=== PATIENT | female | born 1945 | race Caucasian/White ===

== ENCOUNTER 2017-02-25 11:01 | Inpatient (IN) | payer MEDICARE ==
[2017-02-25] VITALS (8 sets, daily range): BP systolic 113–159; BP diastolic 57–73; PULSE 51–80; RESP 15–20; TEMP 97.8–98.3; O2SAT 95–98
[~2017-02-25] VITALS: Ht 152.4 cm; Wt 52.0 kg
[2017-02-25] MEDS ORDERED: GADODIAMIDE PF 287 MG/ML 20 ML VIAL (for RAD MRI) IVCONTRAST ONE (11:02)
--- NOTE | 2017-02-25 11:40 | PD ---
HPI Chief Complaint: Neuro Symptoms/ Deficits Time Seen by Provider: 11:33 Travel History International Travel<30 days: No Contact w/Intl Traveler<30days: No Traveled to known affect area: No History of Present Illness HPI 71-year-old female presents to emergency department with complaints of sudden onset headache last evening around 10 PM. Patient reports visual changes at that time. She states that this time she is improving and her pain is now improving and describes it as a 6 out of 10. Patient states her visual changes or improving as well. 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 Patient denies any specific neurological deficit other than the visual changes that are already noted. Daughter is here and states she seems somewhat confused. Patient denies any other medical history such as diabetes or hypertension. She currently takes Plavix as a anticoagulant. Patient is allergic to citrus and derivatives, statins, morphine , and oxycodone. PFSH Past Medical History Hx Anticoagulant Therapy: Yes (plavix) Asthma: Yes Cardiac Catheterization: Yes Cerebrovascular Accident: Yes Hypertension: Yes Myocardial Infarction: Yes Influenza Vaccination: No ?: Not Tubal Ligation: Yes Past Surgical History Cholecystectomy: Yes Coronary Artery Bypass Graft: Yes Coronary Stent: Yes Social History Alcohol Use: No Tobacco Use: Yes Substance Use: No Allergies-Medications (Allergen,Severity, Reaction): Coded Allergies: [place] And Derivatives (Verified Allergy, Intermediate, Rash, 02/25/17) Yuxtabi-Xkt-Jww Reductase Inhibitor (Verified Allergy, Intermediate, Rash , 02/25/17) morphine (Verified Allergy, Intermediate, Itching, 02/25/17) itching and vomiting oxycodone (Verified Allergy, Intermediate, Tachycardia, 02/25/17) Reported Meds & Prescriptions Reported Meds & Active Scripts Active Active Prescriptions or Reported Medications Unobtainable Review of Systems Except as stated in HPI: all other systems reviewed are Neg General / Constitutional: No: Fever Eyes: Positive: Blind Spots, Visual changes (history of present illness), No: Diploplia, Blurred Vision, Photophobia, Drainage, Redness, Foreign Body Sensation, Pain, Tearing, Blindness HENT: No: Headaches Cardiovascular: No: Chest Pain or Discomfort Respiratory: No: Shortness of Breath Gastrointestinal: No: Abdominal Pain Genitourinary: No: Dysuria Musculoskeletal: No: Pain Skin: No Rash Neurologic: No: Weakness Psychiatric: No: Depression Endocrine: No: Polydipsia Hematologic/Lymphatic: No: Easy Bruising Physical Exam Narrative GENERAL: Patient is alert and oriented although somewhat slow to respond to questions. SKIN: Warm and dry. Normal color. Normal turgor. HEAD: Atraumatic. Normocephalic. Nontender with palpation. EYES: Pupils equal and round. No scleral icterus. No injection or drainage. Patient appears to have some visual deficits which are hard to define with confrontation. Follow scopic exam is unremarkable. There is no lid lag noted. ENT: No nasal bleeding or discharge. Mucous membranes pink and moist. Pharynx is clear. Airway is patent. There is no facial droop. Tongue is midline. Uvula is midline. Patient is swallowing normally. NECK: Trachea midline. Supple and nontender. No bruits appreciated. CARDIOVASCULAR: Bradycardic rate and Normal rhythm. RESPIRATORY: No accessory muscle use. Clear to auscultation. Breath sounds equal bilaterally. GASTROINTESTINAL: Abdomen soft, non-tender, nondistended. Hepatic and splenic margins not palpable. MUSCULOSKELETAL: Extremities without clubbing, cyanosis, or edema. No obvious deformities. NEUROLOGICAL: Awake and alert. No obvious cranial nerve deficits. Motor grossly within normal limits. Five out of 5 muscle strength in the arms and legs. Normal speech. Patient is able to track her nose to finger bilaterally. Chicken Boner strength is equal bilaterally. She is moving both lower extremities equally. PSYCHIATRIC: Appropriate mood and affect; insight and judgment normal. Data Data Last Documented VS Vital Signs Date Time Temp Pulse Resp B/P (MAP) Pulse Ox O2 Delivery O2 Flow Rate FiO2 02/25/17 12:40 96 Room Air 02/25/17 12:40 69 15 113/57 (75) 02/25/17 11:03 98.3 Orders Orders Electrocardiogram (02/25/17 ) Prothrombin Time / Inr (Pt) (02/25/17 11:40) Act Partial Throm Time (Ptt) (02/25/17 11:40) Complete Blood Count With Diff (02/25/17 11:40) Fibrinogen (02/25/17 11:40) Creatine Kinase (Cpk) (02/25/17 11:40) Troponin I (02/25/17 11:40) Ua Includes Microscopic (02/25/17 11:40) Drug Screen, Random Urine (02/25/17 11:40) Type And Screen (02/25/17 11:40) Ct Brain W/O Iv Contrast(Rout) (02/25/17 ) Chest, Single Ap (02/25/17 ) Beta Hcg (Quant/Titer) (02/25/17 11:40) Blood Glucose (02/25/17 11:40) Ecg Monitoring (02/25/17 11:40) Iv Access Insert/Monitor (02/25/17 11:40) NPO (02/25/17 11:40) Oximetry (02/25/17 11:40) Oxygen Administration (02/25/17 11:40) Alcohol (Ethanol) (02/25/17 11:40) Ammonia (02/25/17 11:40) Mri Brain W&W/O Contrast (02/25/17 ) Mra Carotids W Contrast (02/25/17 ) Consult Neurology (02/25/17 ) CKMB (02/25/17 11:45) CKMB% (02/25/17 11:45) Comprehensive Metabolic Panel (02/25/17 13:36) Mra Brain W/O Contrast (Cow) (02/25/17 ) Dipyridamole-Aspirin 200-25 Mg (Aggrenox (02/25/17 21:00) Gadodiamide Pf Inj (Omniscan Pf Inj) (02/25/17 11:02) Admit Order (Ed Use Only) (02/25/17 17:14) Labs Laboratory Tests Test 02/25/17 11:45 02/25/17 12:30 White Blood Count 9.4 TH/MM3 Red Blood Count 4.73 MIL/MM3 Hemoglobin 15.9 GM/DL Hematocrit 46.0 % Mean Corpuscular Volume 97.2 FL Mean Corpuscular Hemoglobin 33.6 PG Mean Corpuscular Hemoglobin Concent 34.6 % Red Cell Distribution Width 14.3 % Platelet Count 281 TH/MM3 Mean Platelet Volume 7.7 FL Neutrophils (%) (Auto) 79.1 % Lymphocytes (%) (Auto) 15.0 % Monocytes (%) (Auto) 5.1 % Eosinophils (%) (Auto) 0.3 % Basophils (%) (Auto) 0.5 % Neutrophils # (Auto) 7.4 TH/MM3 Lymphocytes # (Auto) 1.4 TH/MM3 Monocytes # (Auto) 0.5 TH/MM3 Eosinophils # (Auto) 0.0 TH/MM3 Basophils # (Auto) 0.0 TH/MM3 CBC Comment DIFF FINAL Differential Comment Prothrombin Time 10.7 SEC Prothromb Time International Ratio 1.0 RATIO Activated Partial Thromboplast Time 25.1 SEC Fibrinogen 392 mg/dL Blood Urea Nitrogen 10 MG/DL Creatinine 0.93 MG/DL Random Glucose 124 MG/DL Total Protein 7.4 GM/DL Albumin 3.5 GM/DL Calcium Level 9.1 MG/DL Alkaline Phosphatase 68 U/L Aspartate Amino Transf (AST/SGOT) 63 U/L Alanine Aminotransferase (ALT/SGPT) 33 U/L Total Bilirubin 0.7 MG/DL Sodium Level 139 MEQ/L Potassium Level 3.4 MEQ/L Chloride Level 108 MEQ/L Carbon Dioxide Level 23.1 MEQ/L Anion Gap 8 MEQ/L Estimat Glomerular Filtration Rate 60 ML/MIN Total Creatine Kinase 250 U/L Creatine Kinase MB 3.9 NG/ML Creatine Kinase MB % 1.6 % Troponin I LESS THAN 0.02 NG/ML Human Chorionic Gonadotropin, Quant 2 MIU/ML Ethyl Alcohol Level LESS THAN 3 MG/DL Ammonia 27 MCMOL/L [facility] Medical Decision Making Medical Screen Exam Complete: Yes Emergency Medical Condition: Yes Medical Record Reviewed: Yes Differential Diagnosis Headache. Possible intracranial bleed. Hemorrhagic stroke. Altered mental status. Narrative Course Labs ordered including CBC, CMP, alcohol level, Ammonia level, fibrinogen, urine drug screen, coagulation studies, troponin. CT of the head and chest x-ray are ordered as well. CT findings show: The examination demonstrates a soluble area of decreased attenuation involving the medial aspect of the right occipital cortex. There is slight mass effect associated with this. This appears to extend all the way to the surface of the parenchyma and is most consistent with subacute cortical infarct. MRI imaging to exclude an underlying mass would be of benefit. This is felt significantly less likely. Of note, there is an old, encephalomalacic infarct involving the occipital cortex on the left. No acute intracranial hemorrhage is identified. No extra-axial fluid collections are seen. The appearance of the posterior fossa is unremarkable. The osseous structures of the skull are intact. CONCLUSION: 1. Subacute cortical infarct involving the occipital cortex on the right. Findings discussed with Dr. Vazquez, neurologist is paged to discuss the patient Call returned by Dr. Mattson, and the patient was discussed. MRI of the brain and MRA of the carotids were ordered with and without contrast. Dr. Costa said she would speak down to see the patient. MRI and MRA showed no mass. MRA shows the carotids bilaterally to be patent. Hospitalist was called and discussed, and the patient was admitted. Consult to Dr. Mattson was ordered. Diagnosis Primary Impression: Subacute intracranial hemorrhage Admitting Information Admitting Physician Requests: Admit Scripts Unable to Obtain Active Prescriptions or Reported Meds Condition: Stable Gerald Mac Feb 25, 2017 11:40
--- NOTE | 2017-02-25 12:03 | PD ---
Physical Exam Date Seen by Provider: Feb 25, 2017 Narrative Patient presents with some visual disturbance. Data Data Last Documented VS Vital Signs Date Time Temp Pulse Resp B/P (MAP) Pulse Ox O2 Delivery O2 Flow Rate FiO2 02/25/17 11:03 98.3 80 18 136/73 (94) 98 Room Air Orders Orders Electrocardiogram (02/25/17 ) Prothrombin Time / Inr (Pt) (02/25/17 11:40) Act Partial Throm Time (Ptt) (02/25/17 11:40) Complete Blood Count With Diff (02/25/17 11:40) Fibrinogen (02/25/17 11:40) Creatine Kinase (Cpk) (02/25/17 11:40) Troponin I (02/25/17 11:40) Ua Includes Microscopic (02/25/17 11:40) Drug Screen, Random Urine (02/25/17 11:40) Type And Screen (02/25/17 11:40) Ct Brain W/O Iv Contrast(Rout) (02/25/17 ) Chest, Single Ap (02/25/17 ) Beta Hcg (Quant/Titer) (02/25/17 11:40) Blood Glucose (02/25/17 11:40) Ecg Monitoring (02/25/17 11:40) Iv Access Insert/Monitor (02/25/17 11:40) NPO (02/25/17 11:40) Oximetry (02/25/17 11:40) Oxygen Administration (02/25/17 11:40) Alcohol (Ethanol) (02/25/17 11:40) Ammonia (02/25/17 11:40) MDM Supervised Visit with DRU: Yes Narrative Course I, Dr. Vazquez, have reviewed the advance practice practitioner's documentation and am in agreement, met with the patient face to face, made the diagnosis, and the medical decision making was done by me. *My assessment and Findings: Cranial nerves are intact. Her powder compounder strengths are full and equal. She is able lift both legs up off the bed and hold them equally. [id number] exam is intact. Please see Babatunde Mac's note for final diagnosis and disposition. Scripts Unable to Obtain Active Prescriptions or Reported Meds Avelina Vazquez MD Feb 25, 2017 12:03
--- NOTE | 2017-02-25 12:26 | RADRPT ---
EXAM DATE/TIME: 02/25/2017 11:59 [facility] COMPARISON: No previous studies available for comparison. INDICATIONS : Episode of visual disturbances. Severe headache. RADIATION DOSE: 56.35 CTDIvol (mGy) MEDICAL HISTORY : Cardiovascular disease. Hypertension. Stroke. SURGICAL HISTORY : Cholecystectomy. ENCOUNTER: Initial ACUITY: 2 days PAIN SCALE: 4/10 LOCATION: Bilateral cranial TECHNIQUE: Multiple contiguous axial images were obtained of the head. Using automated exposure control and adj ustment of the mA and/or kV according to patient size, radiation dose was kept as low as reasonably a chievable to obtain optimal diagnostic quality images. DICOM format image data is available electro nically for review and comparison. FINDINGS: The examination demonstrates a soluble area of decreased attenuation involving the medial aspect of t he right occipital cortex. There is slight mass effect associated with this. This appears to extend a ll the way to the surface of the parenchyma and is most consistent with subacute cortical infarct. MR I imaging to exclude an underlying mass would be of benefit. This is felt significantly less likely. Of note, there is an old, encephalomalacic infarct involving the occipital cortex on the left. No acu te intracranial hemorrhage is identified. No extra-axial fluid collections are seen. The appearance of the posterior fossa is unremarkable. The osseous structures of the skull are intact. CONCLUSION: 1. Subacute cortical infarct involving the occipital cortex on the right. 2. Old, encephalomalacic infarct involving a simple cortex on the left. 3. Please see above discussion. Tyrel Huizar MD on February 25, 2017 at 12:23 Board Certified Radiologist. This report was verified electronically.
[2017-02-25 12:41] LABS: AUTOMATED NEUTROPHIL # 7.4 TH/MM3 (1.8-7.7); BASOPHIL % 0.5 % (0.0-2.0); EOSINOPHIL % 0.3 % (0.0-4.0); HEMO FLAGS DIFF FINAL; LYMPHOCYTE # 1.4 TH/MM3 (1.0-4.8); MEAN CELL VOLUME 97.2 FL (80.0-100.0); MEAN CORPUSCULAR HEMOGLOBIN 33.6 PG (27.0-34.0); MEAN CORPUSCULAR HGB CONC 34.6 % (32.0-36.0); MONO % 5.1 % (0.0-8.0); NEUT % 79.1 % (16.0-70.0); PLATELET COUNT 281 TH/MM3 (150-450); RED BLOOD COUNT 4.73 MIL/MM3 (4.00-5.30); RED CELL DISTRIBUTION WIDTH 14.3 % (11.6-17.2); WHITE BLOOD COUNT 9.4 TH/MM3 (4.0-11.0)
[2017-02-25 12:54] LABS: APTT (PATIENT) 25.1 SEC (24.3-30.1); PROTHROMBIN TIME - PATIENT 10.7 SEC (9.8-11.6)
[2017-02-25 13:10] LABS: BETA HCG QUANT 2 MIU/ML (0-5); CREATINE KINASE 250 U/L (26-192)
[2017-02-25 13:19] LABS: ALCOHOL LESS THAN 3 MG/DL (0-5)
[2017-02-25 13:31] LABS: CKMB 3.9 NG/ML (0.5-3.6)
--- NOTE | 2017-02-25 13:47 | RADRPT ---
EXAM DATE/TIME: 02/25/2017 12:36 [facility] COMPARISON: No previous studies available for comparison. INDICATIONS : Short of breath, stroke like symptoms. MEDICAL HISTORY : Myocardial infarction. SURGICAL HISTORY : CABG. ENCOUNTER: Initial ACUITY: 1 day PAIN SCORE: 0/10 LOCATION: Bilateral chest FINDINGS: The patient is post median sternotomy the sternal wires intact. The heart is within normal size limit s. The mediastinal contours are within normal limits. The lungs are clear. The visualized bony structures are grossly intact. CONCLUSION: 1. Post surgical changes. No acute abnormality. Tyrel Huizar MD on February 25, 2017 at 13:46 Board Certified Radiologist. This report was verified electronically.
[2017-02-25 14:03] LABS: ALKALINE PHOSPHATASE 68 U/L (45-117); TOTAL BILIRUBIN ADULT 0.7 MG/DL (0.2-1.0)
[2017-02-25 14:08] LABS: ALT (GPT) 33 U/L (10-53); ANION GAP 8 MEQ/L (5-15); AST (GOT) 63 U/L (15-37); BICARBONATE 23.1 MEQ/L (21.0-32.0); BLOOD UREA NITROGEN 10 MG/DL (7-18); CHLORIDE 108 MEQ/L (98-107); GLOMERULAR FILTRATION RATE 60 ML/MIN (>89); POTASSIUM 3.4 MEQ/L (3.5-5.1); SODIUM (NA) 139 MEQ/L (136-145)
--- NOTE | 2017-02-25 14:27 | EKG ---
Date Performed: 02/25/2017 Time Performed: 11:58:01 PTAGE: 71 years EKG: SINUS BRADYCARDIA ARM LEADS REVERSED BORDERLINE ECG NO PREVIOUS TRACING DOCTOR: Chintan Darby Interpretating Date/Time 02/25/2017 14:25:06
--- NOTE | 2017-02-25 15:22 | MB ---
cc: DAVIDA DAVILA M.D. DATE OF CONSULTATION: 12/25/2016 1946 REASON FOR CONSULTATION Abnormal CT, possible stroke. HISTORY OF PRESENT ILLNESS The patient is a 71-year-old woman who came into the ED with new onset headache about 10 o'clock last night with some change in vision, still having problems with visual field on the left, had a CT of the head done and showed a subacute infarct in the right occipital lobe. She states she has had four strokes in the past. She has a history of bilateral carotid endarterectomies, bypass surgeries. Apparently one of her strokes may have been hemorrhagic per chart note. She states she takes Plavix daily. PAST MEDICAL HISTORY She has a past medical history as stated. ALLERGIES CITRUS AND DIRIVATIVES, STATINS, MORPHINE, OXYCODONE. PAST SURGICAL HISTORY 1. Cholecystectomy. 2. Heart bypass. 3. Coronary artery bypass graft. 4. Coronary stents. 5. Bilateral carotid endarterectomy. SOCIAL HISTORY Still smokes, does not drink or use drugs. MEDICATION Home medicines: Please refer to MR, but she does take Plavix 75 mg daily. PHYSICAL EXAMINATION VITAL SIGNS: Temperature is 98.3, pulse 66, respiratory rate 16, blood pressure 113/57, sating 96% on room air. NECK: Supple. No appreciable bruits. HEART: Regular. NEURO: She is awake and alert. Speech is normal. Pupils are reactive. She has a left visual field loss. Face is symmetrical. Tongue midline. Motor ruano no lateralizing deficits. DTRs a 1+. Toes withdraws. Gait is withheld. IMAGING STUDIES Chest x-ray shows postsurgical changes, nothing acute. Head CT shows subacute cortical infarct in the occipital cortex on the right and old encephalomalacia infarct on the left. LABORATORY DATA Labs are reviewed. IMPRESSION/PLAN Subacute infarct right occipital lobe in a patient with history of carotid disease, coronary artery disease, chronic smoker. Recommend obtaining an MRI of the brain, MRA [id number], carotid ultrasound, 2-D Echo, a lipid panel. SCDs and Lovenox for DVT prophylaxis and seeing that she has failed Plavix therapy I would change her over to Aggrenox one capsule twice daily. Have PT, OT, speech therapy assess her as well, rehab evaluation. Further recommendations to be made accordingly. MD AMIRAH Guevara /2:21 PM /3:01 PM
--- NOTE | 2017-02-25 16:00 | RADRPT ---
EXAM DATE/TIME: 02/25/2017 15:14 [facility] COMPARISON: No previous studies available for comparison. INDICATIONS : Episode of visual disturbances. Severe headache MEDICAL HISTORY : Hypertension. Stroke SURGICAL HISTORY : Cholecystectomy. CABG Tubal ligation. knee ENCOUNTER: Initial ACUITY: 1 day PAIN SCORE: 3/10 LOCATION: cranial Please note a normal MRA of the brain does not entirely exclude the possibility of a small aneurysm, nor the possibility of distal intracranial vessel disease. TECHNIQUE: 3D time of flight MRA was performed. Source images, multiplanar STS MIP, and 3D volume MIP reconstru ctions were reviewed. FINDINGS: There is excellent visualization of the major intracranial arteries out to the second-order branch ve ssels. There is no evidence for aneurysm, vessel truncation or stenosis, and no evidence for vascula r malformation. CONCLUSION: 1. Negative examination. Tyrel Huizar MD on February 25, 2017 at 15:56 Board Certified Radiologist. This report was verified electronically.
--- NOTE | 2017-02-25 16:04 | RADRPT ---
EXAM DATE/TIME: 02/25/2017 15:14 [facility] COMPARISON: No previous studies available for comparison. INDICATIONS : Episode of visual disturbances. Severe headache. CONTRAST: 20 cc Omniscan (gadodiamide) IV MEDICAL HISTORY : Hypertension. Stroke SURGICAL HISTORY : Cholecystectomy. CABG Tubal ligation. Knee ENCOUNTER: Initial ACUITY: 3 day PAIN SCORE: 0/10 LOCATION: cranial TECHNIQUE: Multiplanar, multisequence MRI of the brain was performed both prior to and following the administrat ion of paramagnetic contrast. FINDINGS: CEREBRUM: The diffusion restriction images demonstrate a larger of abnormal signal involving the medial aspect of the right occipital cortex. No discrete underlying mass is identified. Findings would be most cons istent with subacute cortical infarct. Of note, there is some laminar hemorrhage within this on the S WI images. Note is made of an old area of cortical infarct involving the left occipital cortex. The v entricles are normal in size and configuration. No extra-axial fluid collections are seen. WHITE MATTER: No significant signal abnormalities are seen in the white matter. POSTERIOR FOSSA: The cerebellum and brainstem are intact. The 4th ventricle is midline. The cerebellopontine angle is unremarkable. The cerebellar tonsils are normal in position. DIFFUSION IMAGING: There is a focal are of restricted diffusion involving the medial occipital cortex on the right as de scribed above. There is also a punctate area of abnormal signal seen in the posterior aspect of the b harry ganglia on the right. EXTRACRANIAL: The visualized portions of the orbits and paranasal sinuses are unremarkable. POST-CONTRAST: No abnormal areas of parenchymal or dural enhancement. No evidence of blood-brain barrier breakdown. CONCLUSION: 1. No mass lesion identified. 2. Subacute cortical infarct involving the occipital cortex on the right. There is some hemorrhage wi thin this on the SWI images. 3. Old area of infarct involving the occipital cortex on the left. 4. Punctate area of acute/subacute infarct involving the basal ganglia on the right as well. Tyrel Huizar MD on February 25, 2017 at 15:59 Board Certified Radiologist. This report was verified electronically.
--- NOTE | 2017-02-25 16:08 | RADRPT ---
EXAM DATE/TIME: 02/25/2017 15:14 [facility] COMPARISON: No previous studies available for comparison. INDICATIONS : Episode of visual disturbances. Severe headache CONTRAST: 20 cc Omniscan (gadodiamide) IV MEDICAL HISTORY : Hypertension. Stroke SURGICAL HISTORY : Cholecystectomy. CABG Tubal ligation. knee ENCOUNTER: Initial ACUITY: 1 day PAIN SCORE: 3/10 LOCATION: cranial Percent stenosis is calculated using the diameter of the stenotic region over the diameter of the nor mal distal internal carotid artery. TECHNIQUE: Bolus infused MRA of the extracranial circulation was performed using a neurovascular coil. Post pro cessing was performed including rotating subvolume maximum intensity projections of each carotid mayur ry, rotating full volume maximum intensity projections of both carotid arteries, sagittal and coronal sliding thin slab reformations of each carotid artery, and left oblique sliding thin slab reformatio n through the aortic arch to include the origin of the arch branch vessels. FINDINGS: AORTIC ARCH: There is bovine branching of the great vessels from the arch. The origins of the great vessels are wi nichelle patent. Note is made of an area of moderate stenosis in the right subclavian origin as it branch es from the innominate. RIGHT CAROTID: The common carotid is patent throughout its course. There is some irregularity of the distal common c arotid extending up to the bifurcation suggesting atherosclerotic plaquing. There is no hemodynamical ly significant stenosis identified. The more cephalad portion of the internal carotid is widely paten t. The external carotid is widely patent. LEFT CAROTID: The proximal common carotid is widely patent. There is atherosclerotic plaquing just prior to the bif urcation. This results in a mild degree of stenosis in the distal common carotid. This is estimated t o be less than 10% by NASCET criteria. The bulb is widely patent cord the more cephalad portion of in ternal carotid is widely patent. The external carotid is widely patent. VERTEBRALS: The left vertebral is larger in caliber than the right. Both are widely patent. The basilar is widely patent the No stenotic lesions are seen. CONCLUSION: 1. Left carotid: 2. Minimal stenosis of the distal left common carotid estimated to be on the order of 10%. No hemodyn amically significant lesion is identified. 3. 4. Right carotid: 5. No hemodynamically significant carotid stenosis identified. Tyrel Huizar MD on February 25, 2017 at 16:02 Board Certified Radiologist. This report was verified electronically.
[2017-02-25] MEDS ORDERED: ONDANSETRON HCL 4 MG/2 ML VIAL IV PUSH PRN (18:00)
[2017-02-25] MEDS: SODIUM CHLOR 0.9% 1000 ML INJ 1,000 ML IV SCH (18:00)
[2017-02-25] MEDS ORDERED: SODIUM CHLORIDE 0.9% FLUSH 10 ML FLUSH IV FLUSH PRN (18:00)
[2017-02-25] MEDS ORDERED: ACETAMINOPHEN 325 MG TAB PO PRN (18:00)
--- NOTE | 2017-02-25 18:12 | HHI.HP ---
[facility] Service Family Medicine Primary Care Physician Gerald Rocha D.O. Admission Diagnosis Subacute CVA Diagnoses: International Travel<30 Days: No Contact w/Intl Traveler<30days: No History of Present Illness Patient is a 71F with a history significant for multiple strokes, CAD, hypertension, hyperlipidemia, and depression who presents after onset of headache, vision changes, and confusion. She presents with her daughter who provides most of the history. The patient reports that her last normal was before 10:00 yesterday evening, saying that she had onset of the above symptoms at that time. She notes that the headache was located. Top of her head and " felt like a whirlwind". She diminished to sleep last night. When she got up she still had trouble with her vision and had persistent headache. Her daughter urged her to come to the ED to be evaluated. Patient denies any other symptoms, specifically denying chest pain, autonomic symptoms. No recent falls or seizure- like activity. The daughter reports that the patient had decreased appetite over the last day. She has a history of CVAs in the past, reportedly in 2005 in June 2016. Of note, she had bilateral carotid endarterectomies in the remote past. She had 2 CVAs in June and has been on Plavix since this time. Residual deficits from the CVAs include right-sided weakness and vision changes, but her vision changes are new. She has a neurologist in [place]. (Kathy Reina MD R2) Review of Systems Constitutional: DENIES: Fever, Weight loss, Chills Eyes: COMPLAINS OF: Blurred vision, Eye pain, Vision loss, DENIES: Diplopia Ears, nose, mouth, throat: DENIES: Hearing loss, Throat pain, Ear Pain, Running Nose, Sinus Pain Respiratory: DENIES: Cough, Hemoptysis, Sputum production, Shortness of breath Cardiovascular: DENIES: Chest pain, Syncope, Lower Extremity Edema Gastrointestinal: DENIES: Black stools, Bloody stools, Nausea, Vomiting Genitourinary: DENIES: Urinary frequency, Dysuria Musculoskeletal: COMPLAINS OF: Joint pain, Neck pain Integumentary: DENIES: Pruritus, Rash Hematologic/lymphatic: DENIES: Bruising, Lymphadenopathy Neurologic: COMPLAINS OF: Headache, Poor Balance, DENIES: Localized weakness, Paresthesias, Seizures, Speech Problems Psychiatric: COMPLAINS OF: Anxiety, Confusion, Depression, DENIES: Suicidal Ideation, Homicidal Ideation (Kathy Reina MD R2) Past Family Social History Past Medical History CVA 3 CABG Depression with anxiety Hypertension Hyperlipidemia Hypothyroidism PCP: Dr. Aj Vergara Past Surgical History CABG - 2005 (no operating engineer) Tumor knee Bilateral tubal ligation Cholecystectomy Carotid endarterectomy bilaterally Reported Medications Reported Meds & Active Scripts Active Reported Lamisil (Terbinafine) 250 Mg Tab 250 Mg PO DAILY Zetia (Ezetimibe) 10 Mg Tab 10 Mg PO DAILY Levothyroxine (Levothyroxine Sodium) 88 Mcg Tab 88 Mcg PO DAILY Isosorbide Mononitrate 20 Mg Tab 30 Mg PO BID Take 2 doses 7 hours apart. Hydrochlorothiazide 25 Mg Tab 25 Mg PO DAILY Potassium Chloride ER (Potassium Chloride) 10 Meq Cap 10 Meq PO BID Amlodipine (Amlodipine Besylate) 10 Mg Tab 10 Mg PO DAILY Clopidogrel (Clopidogrel Bisulfate) 75 Mg Tab 75 Mg PO DAILY Nitroglycerin SL (Nitroglycerin) Unknown Strength Subl Unknown Dose SL DIRECTED PRN ONE TABLET UNDER THE TONGUE NEEDED FOR CHEST PAIN, MAY REPEAT EVERY FIVE MINUTES FOR A TOTAL OF 3 DOSES OR CALL 911 IF NO RELIEF Metoprolol Tartrate 50 Mg Tab 50 Mg PO DAILY Paroxetine (Paroxetine HCl) 20 Mg Tab 20 Mg PO DAILY Xanax (Alprazolam) 0.5 Mg Tab 0.5 Mg PO TID PRN Topiramate 200 Mg Tab 100 Mg PO BID (Kathy Reina MD R2) Allergies: Coded Allergies: [place] And Derivatives (Verified Allergy, Intermediate, Rash, 02/25/17) Dzfptxh-[id number]-Qbv Reductase Inhibitor (Verified Allergy, Intermediate, Rash , 02/25/17) morphine (Verified Allergy, Intermediate, Itching, 02/25/17) itching and vomiting oxycodone (Verified Allergy, Intermediate, Tachycardia, 02/25/17) Family History Mother: A fib, lung cancer age 79 Brother: CVA, clot from heart, A fib Daughter: of breast age 46 Social History Cigarette: 1 PPD x 55 yr ETOH: remote Illicit: denies Lives with daughter and granddaughter No assistive devices Her daughter is [place] [phone] (Kathy Reina MD R2) Physical Exam Vital Signs Vital Signs Date Time Temp Pulse Resp B/P (MAP) Pulse Ox O2 Delivery O2 Flow Rate FiO2 02/25/17 12:40 96 Room Air 02/25/17 12:40 69 15 113/57 (75) 96 Room Air 02/25/17 12:40 66 16 113/57 (75) 96 Room Air 02/25/17 11:03 98.3 80 18 136/73 (94) 98 Room Air Physical Exam GENERAL: Patient is a well-nourished, well-developed elderly female lying in bed flat. She appears confused. SKIN: Warm and dry. No obvious rashes or ecchymoses. HEAD: Atraumatic. Normocephalic. EYES: Pupils equal and round. No scleral icterus. No injection or drainage. ENT: No nasal bleeding or discharge. Mucous membranes pink and moist. NECK: Trachea midline. No JVD. CARDIOVASCULAR: Regular rate and rhythm. There are no obvious murmurs on exam. RESPIRATORY: No accessory muscle use. Clear to auscultation. Breath sounds equal bilaterally. GASTROINTESTINAL: Abdomen soft, non-tender, nondistended. Hepatic and splenic margins not palpable. MUSCULOSKELETAL: Extremities without clubbing, cyanosis, or edema. No obvious deformities. NEUROLOGICAL: Awake and alert. Cranial nerves II through XII intact. Sensory examination is normal. She has grossly normal strength. Cerebellar exam unremarkable. She has left homonymous hemianopsia. Speech appears to be slowed. PSYCHIATRIC: Appropriate mood and affect; insight and judgment normal. Laboratory Laboratory Tests Test 02/25/17 11:45 02/25/17 12:30 White Blood Count 9.4 Red Blood Count 4.73 Hemoglobin 15.9 Hematocrit 46.0 Mean Corpuscular Volume 97.2 Mean Corpuscular Hemoglobin 33.6 Mean Corpuscular Hemoglobin Concent 34.6 Red Cell Distribution Width 14.3 Platelet Count 281 Mean Platelet Volume 7.7 Neutrophils (%) (Auto) 79.1 Lymphocytes (%) (Auto) 15.0 Monocytes (%) (Auto) 5.1 Eosinophils (%) (Auto) 0.3 Basophils (%) (Auto) 0.5 Neutrophils # (Auto) 7.4 Lymphocytes # (Auto) 1.4 Monocytes # (Auto) 0.5 Eosinophils # (Auto) 0.0 Basophils # (Auto) 0.0 CBC Comment DIFF FINAL Differential Comment Prothrombin Time 10.7 Prothromb Time International Ratio 1.0 Activated Partial Thromboplast Time 25.1 Fibrinogen 392 Blood Urea Nitrogen 10 Creatinine 0.93 Random Glucose 124 Total Protein 7.4 Albumin 3.5 Calcium Level 9.1 Alkaline Phosphatase 68 Aspartate Amino Transf (AST/SGOT) 63 Alanine Aminotransferase (ALT/SGPT) 33 Total Bilirubin 0.7 Sodium Level 139 Potassium Level 3.4 Chloride Level 108 Carbon Dioxide Level 23.1 Anion Gap 8 Estimat Glomerular Filtration Rate 60 Total Creatine Kinase 250 Creatine Kinase MB 3.9 Creatine Kinase MB % 1.6 Troponin I LESS THAN 0.02 Human Chorionic Gonadotropin, Quant 2 Ethyl Alcohol Level LESS THAN 3 Ammonia 27 (Kathy Reina MD R2) Result Diagram: 02/25/17 1145 02/25/17 1145 Imaging Last 72 hours Impressions Neck Magnetic Resonance Angiography 02/25/17 0000 Signed Impressions: Service Date/Time: Saturday, February 25, 2017 15:14 - CONCLUSION: 1. Left carotid: 2. Minimal stenosis of the distal left common carotid estimated to be on the order of 10%%. No hemodynamically significant lesion is identified. 3. 4. Right carotid: 5. No hemodynamically significant carotid stenosis identified. Tyrel Huizar MD Head Magnetic Resonance Angiography 02/25/17 0000 Signed Impressions: Service Date/Time: Saturday, February 25, 2017 15:14 - CONCLUSION: 1. Negative examination. Tyrel Huizar MD Head CT 02/25/17 0000 Signed Impressions: Service Date/Time: Saturday, February 25, 2017 11:59 - CONCLUSION: 1. Subacute cortical infarct involving the occipital cortex on the right. 2. Old, encephalomalacic infarct involving a simple cortex on the left. 3. Please see above discussion. Tyrel Huizar MD Chest X-Ray 02/25/17 0000 Signed Impressions: Service Date/Time: Saturday, February 25, 2017 12:36 - CONCLUSION: 1. Post surgical changes. No acute abnormality. Tyrel Huizar MD Brain MRI 02/25/17 0000 Signed Impressions: Service Date/Time: Saturday, February 25, 2017 15:14 - CONCLUSION: 1. No mass lesion identified. 2. Subacute cortical infarct involving the occipital cortex on the right. There is some hemorrhage within this on the SWI images. 3. Old area of infarct involving the occipital cortex on the left. 4. Punctate area of acute/subacute infarct involving the basal ganglia on the right as well. Tyrel Huizar MD (Kathy Reina MD R2) Caprini VTE Risk Assessment Caprini VTE Risk Assessment: Mod/High Risk (score >= 2) VTE Pharm Contraindication: Intracranial lesions Caprini Risk Assessment Model Point Value = 1 Point Value = 2 Point Value = 3 Point Value = 5 Age 41-60 Minor surgery BMI > 25 kg/m2 Swollen legs Varicose veins or History of unexplained or recurrent spontaneous Oral contraceptives or hormone replacement Sepsis (< 1 month) Serious lung disease, including pneumonia (< 1 month) Abnormal pulmonary function Acute myocardial infarction Congestive heart failure (< 1 month) History of inflammatory bowel disease Medical patient at bed rest Age 61-74 Arthroscopic surgery Major open surgery (> 45 min) Laparoscopic surgery (> 45 min) Malignancy Confined to bed (> 72 hours) Immobilizing plaster cast Central venous access Age >= 75 History of VTE Family history of VTE Factor V Leiden Prothrombin [id number] Lupus anticoagulant Anticardiolipin antibodies Elevated serum homocysteine Heparin-induced thrombocytopenia Other congenital or acquired thrombophilia Stroke (< 1 month) Elective arthroplasty Hip, pelvis, or leg fracture Acute spinal cord injury (< 1 month) Prophylaxis Regimen Total Risk Factor Score Risk Level Prophylaxis Regimen 0-1 Low Early ambulation 2 Moderate Order ONE of the following: *Sequential Compression Device (SCD) *Heparin 5000 units SQ BID 3-4 Higher Order ONE of the following medications: *Heparin 5000 units SQ TID *Enoxaparin/Lovenox 40 mg SQ daily (WT < 150 kg, CrCl > 30 mL/min) *Enoxaparin/Lovenox 30 mg SQ daily (WT < 150 kg, CrCl > 10-29 mL/min) *Enoxaparin/Lovenox 30 mg SQ BID (WT < 150 kg, CrCl > 30 mL/min) AND/OR *Sequential Compression Device (SCD) 5 or more Highest Order ONE of the following medications: *Heparin 5000 units SQ TID (Preferred with Epidurals) *Enoxaparin/Lovenox 40 mg SQ daily (WT < 150 kg, CrCl > 30 mL/min) *Enoxaparin/Lovenox 30 mg SQ daily (WT < 150 kg, CrCl > 10-29 mL/min) *Enoxaparin/Lovenox 30 mg SQ BID (WT < 150 kg, CrCl > 30 mL/min) AND *Sequential Compression Device (SCD) (Kathy Reina MD R2) Assessment and Plan Assessment and Plan 8-year-old female with significant coronary artery history and CVA history who presents with confusion, headache, vision changes concerning for new stroke. CT performed in ED did not show evidence of acute bleed but MRI performed showed subacute infarct of the right apical cortex with some associated hemorrhage. She will be admitted for further workup and close monitoring. Code Status Full code, discussed with daughter in room. Discussed Condition With Seen and discussed with Dr. Strauss, discussed with Dr. Cash (Kathy Reina MD R2) Attending Attestation The patient has been seen and examined. The chart and all resident notes have been reviewed. I agree that inpatient care is appropriate and that a two midnight stay is expected for the reasons documented in the resident history and physical. I have discussed this with the resident and certify the resident s order for inpatient admission. (Avelina Cash MD) Problem List: (1) Subacute intracranial hemorrhage ICD Codes: I62.9 - Nontraumatic intracranial hemorrhage, unspecified Status: Acute Plan: Patient presents with confusion, headache, and acute visual changes. Symptoms first began at 10 PM on 02/25 with imaging findings suggestive of subacute infarct. She has significant vascular risk factors which make her high- risk for repeat stroke. Pertinent exam findings include left homonymous hemianopsia which patient states is new. Neck MRA showing bilateral patency of her carotid arteries CT showing evidence of old infarcts MRI showing subacute right occipital infarct with hemorrhagic transformation. Plan: -IN r/o ordered per UTD rec's with understanding the stroke itself can cause elevated troponins. -2D ECHO ordered for the AM to look for potential wall vegitations. -Patient is on Zetia 10 mg daily, will continue -Neuro checks q4 hrs. -Cardiac telemetry. -HOB flat for 12 hrs in accordance with new [place] protocols. -Bedrest with fall precautions. -Consult neurology, rehab medicine, PT/OT/ST and case management. -If pt passes bedside swallow, will allow for heart healthy diet. DISPO: -Meets inpatient criteria for stroke workup. -Will discuss with pt. the importance of controlling modifiable risk factors for stroke such as BP ctrl, diet, exercise, and not smoking. -Appreciate neurology recommendations: Patient was on Plavix and therefore will require escalation of anticoagulation therapy (2) Hypertension ICD Codes: I10 - Essential (primary) hypertension Status: Chronic Plan: Patient presents with chronic hypertension, will continue home medications in the morning: Metoprolol 50 mg daily, HCTZ 25 mg daily. Patient will not need permissive hypertension at this time given stroke and subacute (3) Hx of CABG ICD Codes: Z95.1 - Presence of aortocoronary bypass graft Status: Chronic Plan: Patient did have a CABG in the past, which is why she is on Plavix. She will need to continue on anticoagulant therapy and follow up closely with cardiology. -We'll monitor on telemetry while inpatient -We will hold isosorbide, 30 mg twice a day, which is home dose (4) Hyperlipidemia ICD Codes: E78.5 - Hyperlipidemia, unspecified Status: Chronic Plan: Patient is admitted with stroke, on Zetia at home, will obtain lipid profile and continue Zetia at this time. (5) Hypothyroidism ICD Codes: E03.9 - Hypothyroidism, unspecified Status: Chronic Plan: Chronic. Patient is on low-dose levothyroxine 88 mg daily, will check TSH and continue home dose levothyroxine. (6) Anxiety with depression ICD Codes: F41.8 - Other specified anxiety disorders Status: Chronic Plan: Mood is stable at this time Patient chronically on Xanax 0.5mg TID, will continue She is also on proxy and 20 mg daily, will continue (7) Fluids/Electrolytes/Nutrition/Prophylaxis Plan: Fluids: tolerating PO/NS @ 90ml/hr Electrolytes: monitor and replete as needed Nutrition: NPO until after this as well, then heart healthy diet DVT Prophylaxis: Early ambulation. On Plavix at home, likely escalate while inpatient. She does have a small intracranial bleed at this time GI Prophylaxis: None indicated Disposition: Likely 1-2 day stay for further stroke workup (Kathy Reina MD R2) Physician Certification 2 Midnight Certification Type: Admission for Inpatient Services Order for Inpatient Services The services are ordered in accordance with Medicare regulations or non- Medicare payer requirements, as applicable. In the case of services not specified as inpatient-only, they are appropriately provided as inpatient services in accordance with the 2-midnight benchmark. Estimated LOS (days): 2 days is the estimated time the patient will need to remain in the hospital, assuming treatment plan goals are met and no additional complications. Post-Hospital Plan: Not yet determined (Kathy Reina MD R2) Kathy Reina MD R2 Feb 25, 2017 18:12 Avelina Cash MD Feb 26, 2017 17:02
[2017-02-25] MEDS ORDERED: SENNOSIDES 8.6 MG TAB PO PRN (18:15)
[2017-02-25] MEDS ORDERED: NALOXONE HCL 0.4 MG/ML AMP IV PUSH PRN (18:15)
[2017-02-25] MEDS ORDERED: LACTULOSE SYRUP 20 GM/30 ML CUP PO PRN (18:15)
[2017-02-25] MEDS ORDERED: BISACODYL 10 MG SUPP RECTAL PRN (19:00)
[2017-02-25] MEDS ORDERED: MAGNESIUM HYDROXIDE SUSP 30 ML CUP PO PRN (19:00)
[2017-02-25 19:08] LABS: BLOOD, URINE NEG (NEG); GLUCOSE,URINE NEG (NEG); KETONE, URINE TRACE mg/dL (NEG); MUCUS URINE FEW /lpf (OCC); NITRITE,URINE NEG (NEG); PH, URINE 6.5 (5.0-8.5); SQUAMOUS EPITHELIAL CELL URINE <1 /hpf (0-5); URINE COLOR YELLOW (YELLW/STRAW)
[2017-02-25 19:27] LABS: CREATINE KINASE 188 U/L (26-192)
[2017-02-25] MEDS: SODIUM CHLORIDE 0.9% FLUSH 10 ML FLUSH IV FLUSH SCH (21:00)
[2017-02-25] MEDS: DOCUSATE SODIUM 50 MG/SENNA 8.6 MG TAB PO SCH (21:00)
[2017-02-25] MEDS ORDERED: METO-309 PO (21:18)
[2017-02-25] MEDS: DIPYRIDAMOLE/ASPIRIN 200 MG/25 MG CAP PO SCH (23:47)
[2017-02-26] VITALS (9 sets, daily range): BP systolic 119–148; BP diastolic 58–68; PULSE 46–65; RESP 18–20; TEMP 97.6–98.9; O2SAT 94–99
[2017-02-26 00:17] LABS: CREATINE KINASE 160 U/L (26-192)
[2017-02-26] MEDS: ALPRAZolam 0.5 MG TAB PO SCH ×4 (01:47→21:37)
[2017-02-26] MEDS ORDERED: ISOS20TA PO (02:19)
[2017-02-26] MEDS ORDERED: NITR1SUB2 SL (02:19)
[2017-02-26] MEDS ORDERED: ZETI10TA5 PO (02:19)
[2017-02-26] MEDS ORDERED: LAMI250T PO (02:19)
[2017-02-26] MEDS ORDERED: AMLO10TA2 PO (02:19)
[2017-02-26] MEDS ORDERED: LEVO88TA2 PO (02:19)
[2017-02-26] MEDS ORDERED: CLOP75TA PO (02:19)
[2017-02-26] MEDS ORDERED: TOPI200T7 PO (02:19)
[2017-02-26] MEDS ORDERED: METO50TA PO (02:19)
[2017-02-26] MEDS ORDERED: POTA10CA PO (02:19)
[2017-02-26] MEDS ORDERED: ALPR.5 PO (02:19)
[2017-02-26] MEDS ORDERED: HYDR25TA5 PO (02:19)
[2017-02-26] MEDS ORDERED: PARO20TA2 PO (02:19)
[2017-02-26 03:02] LABS: HDL CHOLESTEROL 46.4 MG/DL (40.0-60.0)
[2017-02-26] MEDS: LEVOTHYROXINE SODIUM 88 MCG TAB PO SCH (06:50)
[2017-02-26] MEDS: SODIUM CHLOR 0.9% 1000 ML INJ 1,000 ML IV SCH (06:51)
--- NOTE | 2017-02-26 07:40 | EKG ---
Date Performed: 02/25/2017 Time Performed: 20:00:13 PTAGE: 71 years EKG: SINUS BRADYCARDIA BORDERLINE ECG Since PREVIOUS TRACING , no significant change noted PREVIOUS TRACIN02/25/2017 11.58 DOCTOR: Divya Reid Interpretating Date/Time 02/26/2017 07:38:02
[2017-02-26] MEDS: DOCUSATE SODIUM 50 MG/SENNA 8.6 MG TAB PO SCH ×2 (08:19→21:47)
[2017-02-26] MEDS: HYDROCHLOROTHIAZIDE 25 MG TAB PO SCH (08:19)
[2017-02-26] MEDS: PARoxetine HCL 20 MG TAB PO SCH (08:19)
[2017-02-26] MEDS: DIPYRIDAMOLE/ASPIRIN 200 MG/25 MG CAP PO SCH ×2 (08:19→21:00)
[2017-02-26] MEDS: EZETIMIBE 10 MG TAB PO SCH (08:20)
[2017-02-26] MEDS: METOPROLOL TARTRATE 50 MG TAB PO SCH (08:20)
[2017-02-26] MEDS: SODIUM CHLORIDE 0.9% FLUSH 10 ML FLUSH IV FLUSH SCH ×2 (08:24→21:00)
[2017-02-26 08:55] LABS: AUTOMATED NEUTROPHIL # 6.3 TH/MM3 (1.8-7.7); BASOPHIL # 0.1 TH/MM3 (0-0.2); BASOPHIL % 0.6 % (0.0-2.0); EOSINOPHIL # 0.1 TH/MM3 (0-0.4); EOSINOPHIL % 0.7 % (0.0-4.0); HEMATOCRIT 42.3 % (35.0-46.0); HEMO FLAGS DIFF FINAL; LYMPH % 21.2 % (9.0-44.0); LYMPHOCYTE # 1.9 TH/MM3 (1.0-4.8); MEAN CELL VOLUME 96.9 FL (80.0-100.0); MEAN CORPUSCULAR HGB CONC 34.1 % (32.0-36.0); MONO % 6.5 % (0.0-8.0); PLATELET COUNT 239 TH/MM3 (150-450); RED BLOOD COUNT 4.36 MIL/MM3 (4.00-5.30); RED CELL DISTRIBUTION WIDTH 13.9 % (11.6-17.2); WHITE BLOOD COUNT 8.9 TH/MM3 (4.0-11.0)
[2017-02-26] MEDS: POTASSIUM CHLORIDE 10 MEQ CAP PO SCH ×2 (10:42→21:47)
--- NOTE | 2017-02-26 16:46 | HHI.FPPN ---
Subjective Subjective Patient seen and examined. Case reviewed and discussed Please refer to resident H&P for further details regarding HPI, ROS, PMH, SurgHx , FH and SocHx In summary, patient is a 71yoF with a history of multiple CVAs on plavix presenting with headache, visual changes, dysphagia and slowing of her speech. Patient's symptoms started around 10pm on the day prior to admission. She came in after insistence by her daughter. She is seen in her hospital bed reporting changes in her vision, but some improvement since onset. [facility] Objective Objective Last Impressions Neck Magnetic Resonance Angiography 02/25/17 0000 Signed Impressions: Service Date/Time: Saturday, February 25, 2017 15:14 - CONCLUSION: 1. Left carotid: 2. Minimal stenosis of the distal left common carotid estimated to be on the order of 10%%. No hemodynamically significant lesion is identified. 3. 4. Right carotid: 5. No hemodynamically significant carotid stenosis identified. Tyrel Huizar MD Head Magnetic Resonance Angiography 02/25/17 0000 Signed Impressions: Service Date/Time: Saturday, February 25, 2017 15:14 - CONCLUSION: 1. Negative examination. Tyrel Huizar MD Head CT 02/25/17 0000 Signed Impressions: Service Date/Time: Saturday, February 25, 2017 11:59 - CONCLUSION: 1. Subacute cortical infarct involving the occipital cortex on the right. 2. Old, encephalomalacic infarct involving a simple cortex on the left. 3. Please see above discussion. Tyrel Huizar MD Chest X-Ray 02/25/17 0000 Signed Impressions: Service Date/Time: Saturday, February 25, 2017 12:36 - CONCLUSION: 1. Post surgical changes. No acute abnormality. Tyrel Huizar MD Brain MRI 02/25/17 0000 Signed Impressions: Service Date/Time: Saturday, February 25, 2017 15:14 - CONCLUSION: 1. No mass lesion identified. 2. Subacute cortical infarct involving the occipital cortex on the right. There is some hemorrhage within this on the SWI images. 3. Old area of infarct involving the occipital cortex on the left. 4. Punctate area of acute/subacute infarct involving the basal ganglia on the right as well. Tyrel Huizar MD Laboratory Tests - Abnormals Test 02/25/17 18:30 02/25/17 18:45 02/25/17 23:33 02/26/17 07:57 Urine Ketones TRACE mg/dL Urine Mucus FEW /lpf Urine Benzodiazepines Screen POS Troponin I LESS THAN 0.02 NG/ML LESS THAN 0.02 NG/ML Neutrophils (%) (Auto) 71.0 % Potassium Level 3.0 MEQ/L Chloride Level 110 MEQ/L Vital Signs 02/25/17 02/25/17 02/25/17 02/25/17 18:14 18:51 19:57 20:00 Pulse 57 58 Resp 16 17 B/P (MAP) 114/59 (77) Pulse Ox 96 95 95 O2 Delivery Room Air Room Air FiO2 21 21 02/25/17 02/25/17 02/25/17 02/26/17 20:00 20:33 21:14 00:16 Temp 97.8 98.3 Pulse 58 51 52 Resp 17 20 20 B/P (MAP) 114/59 (77) 159/69 (99) 145/64 (91) Pulse Ox 97 96 98 02/26/17 02/26/17 02/26/17 02/26/17 01:27 04:33 05:28 08:00 Temp 98.9 98.8 Pulse 56 65 58 Resp 18 20 B/P (MAP) 141/65 (90) 129/60 (83) Pulse Ox 96 98 94 02/26/17 02/26/17 12:00 13:51 Temp 98.8 Pulse 55 62 Resp 20 B/P (MAP) 124/60 (81) Pulse Ox 98 Physical exam GENERAL: Patient is a well-nourished, well-developed elderly female sitting up in bed. Awake and alert. SKIN: Warm and dry. No obvious rashes or ecchymoses. HEAD: Atraumatic. Normocephalic. EYES: Pupils equal and round. No scleral icterus. No injection or drainage. ENT: No nasal bleeding or discharge. Mucous membranes pink and moist. NECK: Trachea midline. Supple. CARDIOVASCULAR: Regular rate and rhythm. There are no obvious murmurs on exam. RESPIRATORY: No accessory muscle use. Clear to auscultation. Breath sounds equal bilaterally. GASTROINTESTINAL: Abdomen soft, non-tender, nondistended. Hepatic and splenic margins not palpable. MUSCULOSKELETAL: Extremities without clubbing, cyanosis, or edema. No obvious deformities. No calf tenderness. 5/5 strength bilateral UE, RLE, 4/5 LLE NEUROLOGICAL: Awake and alert. Cranial nerves II through XII intact. Sensory examination is normal. She has grossly normal strength. Cerebellar exam unremarkable. She has left homonymous hemianopsia. Speech appears to be slowed. PSYCHIATRIC: Appropriate mood and affect; insight and judgment normal. Assessment Assessment 71yoF admitted with: Acute/subacute CVA CVA 3 CABG Depression with anxiety Hypertension Hyperlipidemia Hypothyroidism Hypokalemia Tobacco dependence Carotid artery disease PLAN PLAN Stroke protocol PT/OT/ST Neuro consultation Echo Carotids Counseled on smoking cessation Aggrenox per neuro recs Telemetry Resume home meds as appropriate Patient seen and examined. Case reviewed and discussed Agree with plan of care as discussed with me and documented in the resident note. Avelina Cash MD Feb 26, 2017 16:46
--- NOTE | 2017-02-26 16:55 | ECHRPT ---
Indication: cva/tia CONCLUSIONS Normal left ventricular size. Wall thickness is measured at the upper limits of normal. The left ventricular systolic function is low normal with an estimated ejection fraction in the rang e of 50- 55%. The right ventricular systoilc function is mildly decreased. The left atrial size is mildly dilated. Moderate mitral valve regurgitation. Mitral annular calcification is present. There is mild tricuspid valve regurgitation. There is estimated mild pulmonary hypertension present (30 mmHg). BP: 141 / 65 HR: 65 Rhythm: MEASUREMENTS (Male / Female) Normal Values Technical Quality:Good 2D ECHO LV Diastolic Diameter PLAX 3.8 cm 4.2 - 5.9 / 3.9 - 5.3 cm LV Systolic Diameter PLAX 3.0 cm IVS Diastolic Thickness 1.0 cm 0.6 - 1.0 / 0.6 - 0.9 cm LVPW Diastolic Thickness 0.6 cm 0.6 - 1.0 / 0.6 - 0.9 cm LV Relative Wall Thickness 0.4 RV Internal Dim ED PLAX 1.8 cm LA Systolic Diameter LX 3.0 cm 3.0 - 4.0 / 2.7 - 3.8 cm DOPPLER MR Peak Velocity 511.0 cm/s MR Peak Gradient 104.4 mmHg Mitral E Point Velocity 112.0 cm/s Mitral A Point Velocity 42.5 cm/s Mitral E to A Ratio 2.6 TR Peak Velocity 222.8 cm/s TR Peak Gradient 19.8 mmHg Right Atrial Pressure 10.0 mmHg Pulmonary Artery Systolic Pressu 29.8 mmHg Right Ventricular Systolic Press 29.8 mmHg FINDINGS LEFT VENTRICLE Normal left ventricular size. Wall thickness is measured at the upper limits of normal. The left ventricular systolic function is low normal with an estimated ejection fraction in the rang e of 50- 55%. RIGHT VENTRICLE The right ventricular systoilc function is mildly decreased. LEFT ATRIUM The left atrial size is mildly dilated. RIGHT ATRIUM The right atrial size is normal. ATRIAL SEPTUM Normal atrial septal thickness without atrial level shunting by limited color doppler interrogation. AORTA The aortic root and proximal ascending aorta are normal in size on limited imaging. MITRAL VALVE Moderate mitral valve regurgitation. Mitral annular calcification is present. AORTIC VALVE Trileaflet aortic valve. No aortic valve stenosis or regurgitation. TRICUSPID VALVE There is mild tricuspid valve regurgitation. There is estimated mild pulmonary hypertension present (30 mmHg). PULMONARY VALVE No pulmonary valve regurgitation or stenosis. VESSELS The inferior vena cava is normal in size. PERICARDIUM No pericardial effusion. Juanito Larry MD (Electronically Signed) Final Date:26 February 2017 16:54
--- NOTE | 2017-02-26 17:15 | EKG ---
Date Performed: 02/26/2017 Time Performed: 00:39:46 PTAGE: 71 years EKG: Sinus bradycardia. Septal T wave changes are nonspecific Since previous tracing, no signifi cant change noted Borderline ECG PREVIOUS TRACING : 02/25/2017 20.00 DOCTOR: Divya Reid Interpretating Date/Time 02/26/2017 17:14:40
[2017-02-27] VITALS (8 sets, daily range): BP systolic 101–140; BP diastolic 53–66; PULSE 51–75; RESP 18; TEMP 98–98.3; O2SAT 95–98
[2017-02-27] MEDS: LEVOTHYROXINE SODIUM 88 MCG TAB PO SCH (05:31)
[2017-02-27] MEDS: ALPRAZolam 0.5 MG TAB PO SCH ×3 (05:31→20:38)
[2017-02-27 07:58] LABS: HEMATOCRIT 43.1 % (35.0-46.0); MEAN CORPUSCULAR HEMOGLOBIN 33.7 PG (27.0-34.0); MEAN CORPUSCULAR HGB CONC 34.7 % (32.0-36.0); PLATELET COUNT 232 TH/MM3 (150-450); RED BLOOD COUNT 4.44 MIL/MM3 (4.00-5.30); RED CELL DISTRIBUTION WIDTH 13.8 % (11.6-17.2); REVIEW FLAG FINAL
[2017-02-27 08:31] LABS: POTASSIUM 3.1 MEQ/L (3.5-5.1)
[2017-02-27] MEDS: SODIUM CHLORIDE 0.9% FLUSH 10 ML FLUSH IV FLUSH SCH ×2 (09:00→20:39)
[2017-02-27] MEDS: METOPROLOL TARTRATE 50 MG TAB PO SCH (09:59)
[2017-02-27] MEDS: DIPYRIDAMOLE/ASPIRIN 200 MG/25 MG CAP PO SCH ×2 (09:59→20:38)
[2017-02-27] MEDS: HYDROCHLOROTHIAZIDE 25 MG TAB PO SCH (10:00)
[2017-02-27] MEDS: PARoxetine HCL 20 MG TAB PO SCH (10:00)
[2017-02-27] MEDS: DOCUSATE SODIUM 50 MG/SENNA 8.6 MG TAB PO SCH ×2 (10:00→20:39)
[2017-02-27] MEDS: EZETIMIBE 10 MG TAB PO SCH (10:00)
[2017-02-27] MEDS: POTASSIUM CHLORIDE 10 MEQ CAP PO SCH ×2 (10:05→20:38)
--- NOTE | 2017-02-27 11:46 | HHI.FPPN ---
Subjective Remarks Patient was seen and examined this morning. She states that she feels her vision is steadily improving, definitely improved from yesterday. She does not have any new symptoms this morning and specifically denies headache, blurry vision, fevers, chills, chest pain, shortness of breath, nausea, vomiting, urinary or bowel symptoms. She is walking around the room on her own without dizziness, shortness of breath, or falls. She wants to go home as soon as possible and does not want home health or rehabilitation. PT evaluation is pending this morning. (Kathy Reina MD R2) Objective Vitals Vital Signs Date Time Temp Pulse Resp B/P (MAP) Pulse Ox O2 Delivery O2 Flow Rate FiO2 02/27/17 08:41 98.3 67 18 125/56 (79) 98 02/27/17 04:30 64 02/27/17 04:00 98.2 55 18 101/53 (69) 95 02/27/17 00:00 98.3 59 18 140/66 (90) 96 02/26/17 20:00 97.8 57 18 148/68 (94) 97 02/26/17 19:40 21 02/26/17 16:00 98.3 62 20 122/58 (79) 99 02/26/17 13:51 62 02/26/17 12:00 98.8 55 20 124/60 (81) 98 I/O 02/26/17 02/26/17 02/26/17 02/27/17 02/27/17 02/27/17 07:00 15:00 23:00 07:00 15:00 23:00 Intake Total 883 ml Balance 883 ml Intake IV Total 883 ml # Voids 5 4 # Bowel Movements 0 (Kathy Reina MD R2) Result Diagram: 02/27/17 0726 02/27/17 0726 Imaging Last Impressions Neck Magnetic Resonance Angiography 02/25/17 0000 Signed Impressions: Service Date/Time: Saturday, February 25, 2017 15:14 - CONCLUSION: 1. Left carotid: 2. Minimal stenosis of the distal left common carotid estimated to be on the order of 10%%. No hemodynamically significant lesion is identified. 3. 4. Right carotid: 5. No hemodynamically significant carotid stenosis identified. Tyrel Huizar MD Head Magnetic Resonance Angiography 9/27/17 0000 Signed Impressions: Service Date/Time: Saturday, February 25, 2017 15:14 - CONCLUSION: 1. Negative examination. Tyrel Huizar MD Head CT 02/25/17 Signed Impressions: Service Date/Time: Saturday, February 25, 2017 11:59 - CONCLUSION: 1. Subacute cortical infarct involving the occipital cortex on the right. 2. Old, encephalomalacic infarct involving a simple cortex on the left. 3. Please see above discussion. Tyrel Huizar MD Chest X-Ray 02/25/17 Signed Impressions: Service Date/Time: Saturday, February 25, 2017 12:36 - CONCLUSION: 1. Post surgical changes. No acute abnormality. Tyrel Huizar MD Brain MRI 02/25/17 Signed Impressions: Service Date/Time: Saturday, February 25, 2017 15:14 - CONCLUSION: 1. No mass lesion identified. 2. Subacute cortical infarct involving the occipital cortex on the right. There is some hemorrhage within this on the SWI images. 3. Old area of infarct involving the occipital cortex on the left. 4. Punctate area of acute/subacute infarct involving the basal ganglia on the right as well. Tyrel Huizar MD Objective Remarks GENERAL: Patient is a well-nourished, well-developed elderly female lying in bed watching TV. SKIN: Warm and dry. No obvious rashes or ecchymoses. HEAD: Atraumatic. Normocephalic. EYES: Pupils equal and round. No scleral icterus. No injection or drainage. ENT: No nasal bleeding or discharge. Mucous membranes pink and moist. NECK: Trachea midline. No JVD. CARDIOVASCULAR: Regular rate and rhythm. There are no obvious murmurs on exam. There is no irregularity noted. RESPIRATORY: No accessory muscle use. Clear to auscultation without wheezes or rhonchi. Breath sounds equal bilaterally. GASTROINTESTINAL: Abdomen soft, non-tender, nondistended. Hepatic and splenic margins not palpable. MUSCULOSKELETAL: Extremities without clubbing, cyanosis, or edema. No obvious deformities. NEUROLOGICAL: Awake and alert. She is oriented to person, place, time, and contacts. Cranial nerves II through XII intact aside from improving left homologous hemianopsia. Sensory examination is normal. She has grossly normal strength. Cerebellar exam unremarkable. Speech is normal. PSYCHIATRIC: Appropriate mood and affect; insight and judgment normal. Medications and IVs Inpatient Medications Acetaminophen (Tylenol) 650 mg Q4H PRN PO PAIN SCALE 1 TO 10; Start 02/25/17 at 18:00 Alprazolam (Xanax) 0.5 mg Q8HR PO Last administered on 02/27/17 14:50; Start 02/26/17 at 01:15 Amlodipine Besylate (Norvasc) 10 mg DAILY PO Last administered on 02/27/17 09: 59; Start 02/26/17 at 09:00 Bisacodyl (Dulcolax Supp) 10 mg DAILY PRN RECTAL SEVERE CONSITIPATION; Start at 19:00 Dipyridamole/ Aspirin (Aggrenox 200-25 Mg) 1 cap Q12HR PO Last administered on 02/27/17 09:59; Start 02/25/17 at 21:00 EZETIMIBE (Zetia) 10 mg DAILY PO Last administered on 02/27/17 10:00; Start at 09:00 Hydrochlorothiazide (Hydrodiuril) 25 mg DAILY PO Last administered on 10:00; Start 02/26/17 at 09:00 Lactulose (Lactulose Liq) 30 ml DAILY PRN PO SEVERE CONSITIPATION; Start at 18:15 Levothyroxine Sodium (Synthroid) 88 mcg DAILY@0700 PO Last administered on 02/27 05:31; Start 02/26/17 at 07:00 Magnesium Hydroxide (Milk Of Magnesia Liq) 30 ml Q12H PRN PO MILD - MODERATE CONSTIPATION; Start 02/25/17 at 19:00 Metoprolol Tartrate (Lopressor) 50 mg DAILY PO Last administered on 02/27/17 09:59; Start 02/26/17 at 09:00 Naloxone HCl (Narcan Inj) 0.4 mg UNSCH PRN IV PUSH SEE LABEL COMMENTS; Start at 18:15 Ondansetron HCl (Zofran Inj) 4 mg Q6H PRN IV PUSH NAUSEA; Start 02/25/17 at 18: 00 Paroxetine HCl (Paxil) 20 mg DAILY PO Last administered on 02/27/17 10:00; Start 02/26/17 at 09:00 Potassium Chloride (KCl) 10 meq BID PO Last administered on 02/27/17 10:05; Start 02/26/17 at 09:00 Senna/Docusate Sodium (Mona-Colace) 1 tab BID PO Last administered on 10:00; Start 02/25/17 at 21:00 Sennosides (Senokot) 17.2 mg Q12H PRN PO MODERATE - SEVERE CONSTIPATION; Start 02/25/17 at 18:15 Sodium Chloride (NS Flush) 2 ml BID IV FLUSH Last administered on 02/27/17 09: 00; Start 02/25/17 at 21:00 (Kathy Reina MD R2) A/P Assessment and Plan 71-year-old female with significant coronary artery history and CVA history who presents with confusion, headache, vision changes concerning for new stroke. CT performed in ED did not show evidence of acute bleed but MRI performed showed subacute infarct of the right apical cortex with some associated hemorrhage. She was admitted for further workup and close monitoring. Echo report today showing mild left atrial enlargement, concerning for possible undiagnosed atrial fibrillation. Cardiology consult placed today Discharge Planning Likely 1-2 days pending further workup of etiology of recurrent CVA (Kathy Reina MD R2) Attending Attestation Patient seen and examined. Case reviewed and discussed Agree with plan of care as discussed with me and documented in the resident note. (Avelina Cash MD) Problem List: (1) Subacute intracranial hemorrhage ICD Codes: I62.9 - Nontraumatic intracranial hemorrhage, unspecified Status: Acute Plan: * Continue cardiac workup to rule out cardiac source of CVA * Of note, telemetry did show [id number] beat run of possible V. tach early yesterday morning, patient was asymptomatic * 2-D echo showing mild left atrial enlargement * Continue medical management with Aggrenox per neurology * Vision changes or improvement, need to monitor Hospital course: * Patient presented with confusion, headache, and acute visual changes. Symptoms first began at 10 PM on 02/25 with imaging findings suggestive of subacute infarct. She has significant vascular risk factors which make her high- risk for repeat stroke. * Patient has a history of CVA and was on Plavix at home without any missed doses * Pertinent exam findings include left homonymous hemianopsia which patient states is new. * Neck MRA showing bilateral patency of her carotid arteries * CT showing evidence of old infarcts * MRI showing subacute right occipital infarct with hemorrhagic transformation. * Stroke protocol was initiated * Patient is on Zetia 10 mg daily at home, will continue * Continue Neuro checks q4 hrs. * Cardiac telemetry. * Consult neurology, rehab medicine, PT/OT/ST and case management. * Cardiology consult 02/27 to evaluate for possible A. fib workup DISPO: -Meets inpatient criteria for stroke workup, likely will have a 2-4 day hospital stay, likely to be discharged home -Discussed with pt. the importance of controlling modifiable risk factors for stroke such as BP ctrl, diet, exercise, and not smoking. (2) Hypertension ICD Codes: I10 - Essential (primary) hypertension Status: Chronic Plan: Patient presents with chronic hypertension, will continue home medications: Metoprolol 50 mg daily, HCTZ 25 mg daily. We'll hold for hypotension, goal BP around 140/90 (3) Hx of CABG ICD Codes: Z95.1 - Presence of aortocoronary bypass graft Status: Chronic Plan: She does have a history of CABG, was on Plavix at home.. She will need to continue on Aggrenox and follow up closely with cardiology. -We'll monitor on telemetry while inpatient -We will hold isosorbide mononitrate -Cardiology consult pending for A. fib workup (4) Hyperlipidemia ICD Codes: E78.5 - Hyperlipidemia, unspecified Status: Chronic Plan: Patient is admitted with stroke, on Zetia at home Lipid profile is normal, continue Zetia (5) Hypothyroidism ICD Codes: E03.9 - Hypothyroidism, unspecified Status: Chronic Plan: Chronic. Patient is on low-dose levothyroxine 88 mg daily, will check TSH and continue home dose levothyroxine. (6) Anxiety with depression ICD Codes: F41.8 - Other specified anxiety disorders Status: Chronic Plan: Mood is stable at this time Patient chronically on Xanax 0.5mg TID, will continue She is also on proxy and 20 mg daily, will continue (7) Fluids/Electrolytes/Nutrition/Prophylaxis Plan: Fluids: tolerating PO, DC IV fluids today Electrolytes: monitor and replete as needed Nutrition: Heart healthy diet DVT Prophylaxis: Early ambulation. Aggrenox. She does have a small intracranial bleed at this time GI Prophylaxis: None indicated DW Dr. Cash (Kathy Reina MD R2) Kathy Reina MD R2 Feb 27, 2017 11:46 Avelina Cash MD Feb 28, 2017 14:16
--- NOTE | 2017-02-27 14:46 | PD.CONS ---
[facility] Service Rehabilitation Medicine Consult Requested By Dr. Reina Reason for Consult Comprehensive rehabilitation evaluation. Primary Care Physician Gerald Rocha D.O. History of Present Illness Nicolasa Reina is a 71-year-old right-hand dominant female admitted to [facility] 02/25/17 with change in vision. Head CT shows subacute cortical infarct in the right occipital cortex and old, encephalomalacia infarct in the left simple cortex. Brain MRI showed subacute cortical infarct involving the occipital cortex on the right, subacute/acute infarct in the right basal ganglia and old infarct in left occipital cortex. Patient is denying any headache. She reports decreased visual field on the left. No double vision. Her swallow is at baseline. She feels that her cognition is intact. She denies any motor weakness. There is no numbness and tingling in the upper lower extremities. Review of Systems Constitutional: DENIES: Fatigue Eyes: COMPLAINS OF: Vision loss, DENIES: Diplopia Ears, nose, mouth, throat: DENIES: Throat pain Respiratory: COMPLAINS OF: Cough, DENIES: Shortness of breath Cardiovascular: DENIES: Chest pain Gastrointestinal: COMPLAINS OF: Difficulty Swallowing (occasional choking on thin liquids), DENIES: Abdominal pain Genitourinary: DENIES: Urinary incontinence Musculoskeletal: COMPLAINS OF: Back pain Hematologic/lymphatic: DENIES: Bruising Immunologic/allergic: DENIES: Urticaria Neurologic: DENIES: Headache, Localized weakness, Paresthesias, Speech Problems Psychiatric: DENIES: Confusion Past Family Social History Allergies: Coded Allergies: [place] And Derivatives (Verified Allergy, Intermediate, Rash, 02/25/17) [id number] Reductase Inhibitor (Verified Allergy, Intermediate, Rash , 02/25/17) morphine (Verified Allergy, Intermediate, Itching, 02/25/17) itching and vomiting oxycodone (Verified Allergy, Intermediate, Tachycardia, 02/25/17) Past Medical History Previous strokes Depression/anxiety Hypertension Hyperlipidemia Hypokalemia Tobacco dependence CAD Past Surgical History CABG Current Medications Current Medications Medications (Trade) Dose Ordered Sig/[place]ley Route Start Time Stop Time Status Last Admin (Aggrenox 200-25 Mg) 1 cap Q12HR PO 02/25/17 21:00 02/27/17 09:59 (NS Flush) 2 ml UNSCH PRN IV FLUSH 02/25/17 18:00 (NS Flush) 2 ml BID IV FLUSH 02/25/17 21:00 02/27/17 09:00 (Tylenol) 650 mg Q4H PRN PO 02/25/17 18:00 (Zofran Inj) 4 mg Q6H PRN IV PUSH 02/25/17 18:00 (Narcan Inj) 0.4 mg UNSCH PRN IV PUSH 02/25/17 18:15 (Mona-Colace) 1 tab BID PO 02/25/17 21:00 02/27/17 10:00 (Milk Of Magnesia Liq) 30 ml Q12H PRN PO 02/25/17 19:00 (Senokot) 17.2 mg Q12H PRN PO 02/25/17 18:15 (Dulcolax Supp) 10 mg DAILY PRN RECTAL 02/25/17 19:00 (Lactulose Liq) 30 ml DAILY PRN PO 02/25/17 18:15 (Xanax) 0.5 mg Q8HR PO 02/26/17 01:15 02/27/17 05:31 (Norvasc) 10 mg DAILY PO 02/26/17 09:00 02/27/17 09:59 (Zetia) 10 mg DAILY PO 02/26/17 09:00 02/27/17 10:00 (Hydrodiuril) 25 mg DAILY PO 02/26/17 09:00 02/27/17 10:00 (Synthroid) 88 mcg DAILY@0700 PO 02/26/17 07:00 02/27/17 05:31 (Lopressor) 50 mg DAILY PO 02/26/17 09:00 02/27/17 09:59 (Paxil) 20 mg DAILY PO 02/26/17 09:00 02/27/17 10:00 (KCl) 10 meq BID PO 02/26/17 09:00 02/27/17 10:05 Family History Brother: Stroke Social History Prior to admission patient lived in [place], [place] with her daughter. She reports that she was independent with mobility and ADLs Exam I&O / VS Vital Signs Date Time Temp Pulse Resp B/P (MAP) Pulse Ox O2 Delivery O2 Flow Rate FiO2 02/27/17 12:41 98.0 54 18 119/60 (79) 97 02/27/17 08:41 98.3 67 18 125/56 (79) 98 02/27/17 08:00 65 02/27/17 04:30 64 02/27/17 04:00 98.2 55 18 101/53 (69) 95 02/27/17 00:00 98.3 59 18 140/66 (90) 96 02/26/17 20:00 97.8 57 18 148/68 (94) 97 02/26/17 19:40 21 02/26/17 16:00 98.3 62 20 122/58 (79) 99 General: No acute distress Respiratory: Lungs CTA, Non-labored respirations, Coarse breath sounds Gastrointestinal: Non-Distended, Non-Tender Cardiovascular: Normal rate, Regular Rhythm Skin: Other (no rash noted) Musculoskeletal: Swelling (none in the distal lower extremities) Psychiatric: Cooperative, Appropriate mood & affect Orientation: oriented to Self, oriented to Place, oriented to Time (with cues) , oriented to Situation Neurologic: Pupils (PERRLA), EOM (intact), Visual Maxwell (left visual field cut ), Facial Symmetry (symmetric), Speech (no word finding difficulties noted) Motor: Right Upper Extremity, Left Upper Extremity, Right Lower Extremity (5/5) , Left Lower Extremity (5/55/55/5) Sensory Intact to light touch in both upper and lower extremities DTRs: Normal Babinski: Negative Clonus: Negative Assessment and Plan Diagnosis: (1) Stroke ICD Codes: I63.9 - Cerebral infarction, unspecified Assessment 1. Stroke with left visual field cut 2. Previous stroke 3. Tobacco abuse 4. CAD status post CABG 5. Depression/anxiety 6. Hyperlipidemia Plan 1. Physical therapy as mobilizing and bed mobility/transfers are independent and patient is ambulating 600 feet with cane. Supervision for safety 2. Speech therapy has evaluated swallow and patient's tolerance soft diet with thin liquids 3. Occupational therapy is addressing ADLs and now contact guard to standby assist 4. Case management is working on discharge planning and anticipate patient will return home with assistance from her daughter. Will follow-up as an outpatient Thank you for this consult Mena Epps MD Feb 27, 2017 14:46
--- NOTE | 2017-02-27 18:55 | MB ---
cc: ROBERTO PALACIO GLEN DATE OF CONSULTATION 02/27/17 1946 REASON FOR CONSULTATION Left atrial enlargement seen on echo, concern about paroxysmal atrial fibrillation, history of strokes. HISTORY OF PRESENT ILLNESS The patient is a fair historian. She is a 71-year-old white female, followed in our office by Dr. Roberto Palacio, with a history of coronary artery disease, cerebrovascular disease, hypertension, hyperlipidemia, tobacco abuse who presented to the hospital about two days ago with visual changes and increase in her usual baseline headache. Workup has revealed evidence for subacute cortical infarct involving the occipital cortex on the right, subacute infarct in the right basal ganglia as well as old infarct in the left occipital cortex. The patient denies any recent chest pain, shortness of breath, paroxysmal nocturnal dyspnea, lightheadedness, syncope, near-syncope. Rarely, she experiences fleeting palpitations. She also denies pedal edema, fevers. PAST MEDICAL HISTORY 1. Coronary disease status post three-vessel bypass surgery 2005. 2. Carotid artery disease status post right carotid endarterectomy 2003 and left carotid endarterectomy 2013. 3. History of stroke with recurrent CVAs this admission. 4. Hyperlipidemia. 5. Hypertension 6. Moderate to severe mitral regurgitation noted on echo June 2016. MEDICATIONS Current cardiac medications 1. Amlodipine 10 mg p.o. daily. 2. Zetia 10 mg p.o. daily. 3. Hydrochlorothiazide 25 mg p.o. daily. 4. Metoprolol tartrate 50 mg p.o. daily. 5. Potassium chloride 10 mg once p.o. b.i.d. 6. Aggrenox 1 capsule p.o. q.12 h. ALLERGIES STATINS MORPHINE OXYCODONE FAMILY HISTORY Noncontributory. SOCIAL HISTORY The patient continues to smoke about a pack of cigarettes per day. She denies drug or alcohol abuse. REVIEW OF SYSTEMS As in the history of present illness otherwise negative or noncontributory. She also denies melena, dyspepsia, bright red blood per rectum, wheezing. PHYSICAL EXAMINATION VITAL SIGNS: Blood pressure 107/60 with a pulse of 51, respirations 18. GENERAL: She is a well-developed thin white female in no acute distress. HEENT: Jugular venous pressure is normal. Carotid pulses are 2+ bilaterally and without bruits. CHEST: Examination of the chest reveals diminished breath sounds diffusely. There are a few scattered mild rhonchi. CARDIAC: She has a regular rhythm and rate without S3, S4 or murmur. ABDOMEN: She has a soft, nontender abdomen. Bowel sounds are present. There is no definite hepatosplenomegaly. EXTREMITIES: No clubbing, cyanosis or edema. LABORATORY DATA Normal CBC, potassium 3.1, BUN 10, creatinine 0.68, negative cardiac enzymes. Total cholesterol 163, LDL on 95, HDL 46, triglycerides 107. IMAGING STUDIES Chest x-ray shows no acute disease. CARDIOLOGY STUDIES EKG shows sinus bradycardia, nonspecific T-wave abnormality. IMPRESSION Overall stable cardiac status in this 71-year-old white female with a history of coronary artery bypass grafting 2005, carotid disease, hyperlipidemia, hypertension, now admitted with recurrent CVA. I have been asked to see the patient for possible paroxysmal atrial fibrillation in light of left atrial enlargement reported on echo. Her echocardiogram has been reviewed. The left atrial enlargement is probably at most borderline in severity. There is no evidence for right atrial enlargement. Overall, I doubt she is having paroxysms of atrial fibrillation. She also had a Cardionet monitor placed June 19 to July 18, 2016 showing no evidence for atrial fibrillation or atrial flutter. RECOMMENDATIONS 1. No specific recommendations at this time from a cardiac standpoint. Repeat outpatient extended monitoring could be considered, although the patient is extremely reluctant to undergo another Cardionet monitor. 2. We will follow up as needed. MD YARED Mendez/ /5:41 PM /6:37 PM [email or web address]
[2017-02-27] MEDS ORDERED: POTASSIUM CHLORIDE 10 MEQ CONTROLLED RELEASE TAB PO ONE (20:00)
[2017-02-28] VITALS: BP 110/67; PULSE 91; RESP 18; TEMP 97.2; O2SAT 94
[2017-02-28 04:00] VITALS: BP 110/55; PULSE 62; RESP 18; TEMP 98.1; O2SAT 93
[2017-02-28] MEDS: ALPRAZolam 0.5 MG TAB PO SCH (05:39)
[2017-02-28] MEDS: LEVOTHYROXINE SODIUM 88 MCG TAB PO SCH (05:39)
[2017-02-28 07:03] LABS: AUTOMATED NEUTROPHIL # 4.4 TH/MM3 (1.8-7.7); BASOPHIL # 0.1 TH/MM3 (0-0.2); BASOPHIL % 0.9 % (0.0-2.0); EOSINOPHIL # 0.1 TH/MM3 (0-0.4); EOSINOPHIL % 1.2 % (0.0-4.0); HEMATOCRIT 44.6 % (35.0-46.0); HEMO FLAGS DIFF FINAL; LYMPH % 25.4 % (9.0-44.0); LYMPHOCYTE # 1.7 TH/MM3 (1.0-4.8); MEAN CELL VOLUME 96.5 FL (80.0-100.0); MEAN CORPUSCULAR HEMOGLOBIN 33.3 PG (27.0-34.0); MEAN CORPUSCULAR HGB CONC 34.5 % (32.0-36.0); MONO % 6.5 % (0.0-8.0); PLATELET COUNT 247 TH/MM3 (150-450); RED BLOOD COUNT 4.63 MIL/MM3 (4.00-5.30); RED CELL DISTRIBUTION WIDTH 13.8 % (11.6-17.2); WHITE BLOOD COUNT 6.7 TH/MM3 (4.0-11.0)
[2017-02-28 07:26] LABS: BICARBONATE 24.5 MEQ/L (21.0-32.0); POTASSIUM 3.9 MEQ/L (3.5-5.1)
[2017-02-28 08:00] VITALS: BP 136/63; PULSE 67; RESP 18; TEMP 97.6; O2SAT 97
[2017-02-28] MEDS: POTASSIUM CHLORIDE 10 MEQ CAP PO SCH (09:16)
[2017-02-28] MEDS: METOPROLOL TARTRATE 50 MG TAB PO SCH (09:16)
[2017-02-28] MEDS: EZETIMIBE 10 MG TAB PO SCH (09:16)
[2017-02-28] MEDS: DIPYRIDAMOLE/ASPIRIN 200 MG/25 MG CAP PO SCH (09:16)
[2017-02-28] MEDS: HYDROCHLOROTHIAZIDE 25 MG TAB PO SCH (09:16)
[2017-02-28] MEDS: DOCUSATE SODIUM 50 MG/SENNA 8.6 MG TAB PO SCH (09:16)
[2017-02-28] MEDS: PARoxetine HCL 20 MG TAB PO SCH (09:16)
[2017-02-28] MEDS: SODIUM CHLORIDE 0.9% FLUSH 10 ML FLUSH IV FLUSH SCH (09:17)
[2017-02-28] MEDS ORDERED: AGGR20025 PO (10:55)
--- NOTE | 2017-02-28 10:58 | HHI.DS ---
Discharge Summary Admission Date Feb 25, 2017 at 17:17 Admitting Diagnosis Subacute CVA (1) Subacute intracranial hemorrhage Diagnosis: Principal Plan: * Continue cardiac workup to rule out cardiac source of CVA * Of note, telemetry did show [id number] beat run of possible V. tach early yesterday morning, patient was asymptomatic * 2-D echo showing mild left atrial enlargement * Continue medical management with Aggrenox per neurology * Vision changes or improvement, need to monitor Hospital course: * Patient presented with confusion, headache, and acute visual changes. Symptoms first began at 10 PM on 02/25 with imaging findings suggestive of subacute infarct. She has significant vascular risk factors which make her high- risk for repeat stroke. * Patient has a history of CVA and was on Plavix at home without any missed doses * Pertinent exam findings include left homonymous hemianopsia which patient states is new. * Neck MRA showing bilateral patency of her carotid arteries * CT showing evidence of old infarcts * MRI showing subacute right occipital infarct with hemorrhagic transformation. * Stroke protocol was initiated * Patient is on Zetia 10 mg daily at home, will continue * Continue Neuro checks q4 hrs. * Cardiac telemetry. * Consult neurology, rehab medicine, PT/OT/ST and case management. * Cardiology consult 02/27 to evaluate for possible A. fib workup DISPO: -Meets inpatient criteria for stroke workup, likely will have a 2-4 day hospital stay, likely to be discharged home -Discussed with pt. the importance of controlling modifiable risk factors for stroke such as BP ctrl, diet, exercise, and not smoking. ICD Codes: I62.9 - Nontraumatic intracranial hemorrhage, unspecified Status: Acute (2) Hypertension Diagnosis: Secondary Plan: Patient presents with chronic hypertension, will continue home medications: Metoprolol 50 mg daily, HCTZ 25 mg daily. We'll hold for hypotension, goal BP around 140/90 ICD Codes: I10 - Essential (primary) hypertension Status: Chronic (3) Hx of CABG Diagnosis: Secondary Plan: She does have a history of CABG, was on Plavix at home.. She will need to continue on Aggrenox and follow up closely with cardiology. -We'll monitor on telemetry while inpatient -We will hold isosorbide mononitrate -Cardiology consult pending for A. fib workup ICD Codes: Z95.1 - Presence of aortocoronary bypass graft Status: Chronic (4) Hyperlipidemia Diagnosis: Secondary Plan: Patient is admitted with stroke, on Zetia at home Lipid profile is normal, continue Zetia ICD Codes: E78.5 - Hyperlipidemia, unspecified Status: Chronic (5) Hypothyroidism Diagnosis: Secondary Plan: Chronic. Patient is on low-dose levothyroxine 88 mg daily, will check TSH and continue home dose levothyroxine. ICD Codes: E03.9 - Hypothyroidism, unspecified Status: Chronic (6) Anxiety with depression Diagnosis: Secondary Plan: Mood is stable at this time Patient chronically on Xanax 0.5mg TID, will continue She is also on proxy and 20 mg daily, will continue ICD Codes: F41.8 - Other specified anxiety disorders Status: Chronic (7) Fluids/Electrolytes/Nutrition/Prophylaxis Plan: Fluids: tolerating PO, DC IV fluids today Electrolytes: monitor and replete as needed Nutrition: Heart healthy diet DVT Prophylaxis: Early ambulation. Aggrenox. She does have a small intracranial bleed at this time GI Prophylaxis: None indicated DW Dr. Cash Brief History Patient is a 71F with a history significant for multiple strokes, CAD, hypertension, hyperlipidemia, and depression who presents after onset of headache, vision changes, and confusion. She presents with her daughter who provides most of the history. The patient reports that her last normal was before 10:00 yesterday evening, saying that she had onset of the above symptoms at that time. She notes that the headache was located. Top of her head and " felt like a whirlwind". She diminished to sleep last night. When she got up she still had trouble with her vision and had persistent headache. Her daughter urged her to come to the ED to be evaluated. Patient denies any other symptoms, specifically denying chest pain, autonomic symptoms. No recent falls or seizure- like activity. The daughter reports that the patient had decreased appetite over the last day. She has a history of CVAs in the past, reportedly in 2005 in June 2016. Of note, she had bilateral carotid endarterectomies in the remote past. She had 2 CVAs in June and has been on Plavix since this time. Residual deficits from the CVAs include right-sided weakness and vision changes, but her vision changes are new. She has a neurologist in [place]. CBC/BMP: 02/28/17 0645 02/28/17 0645 Significant Findings Laboratory Tests Test 02/25/17 11:45 02/25/17 12:30 02/25/17 18:30 02/25/17 18:45 Hemoglobin 15.9 GM/DL (11.6-15.3) Neutrophils (%) (Auto) 79.1 % (16.0-70.0) Fibrinogen 392 mg/dL (227-377) Random Glucose 124 MG/DL (74-106) Aspartate Amino Transf (AST/SGOT) 63 U/L (15-37) Potassium Level 3.4 MEQ/L (3.5-5.1) Chloride Level 108 MEQ/L (98-107) Estimat Glomerular Filtration Rate 60 ML/MIN (>89) Total Creatine Kinase 250 U/L (26-192) Creatine Kinase MB 3.9 NG/ML (0.5-3.6) Troponin I LESS THAN 0.02 NG/ML LESS THAN 0.02 NG/ML Urine Ketones TRACE mg/dL (NEG) Urine Mucus FEW /lpf (OCC) Urine Benzodiazepines Screen POS (NEG) Test 02/25/17 23:33 02/26/17 07:57 02/27/17 07:26 02/28/17 06:45 Troponin I LESS THAN 0.02 NG/ML Neutrophils (%) (Auto) 71.0 % (16.0-70.0) Potassium Level 3.0 MEQ/L (3.5-5.1) 3.1 MEQ/L (3.5-5.1) Chloride Level 110 MEQ/L (98-107) 110 MEQ/L (98-107) 111 MEQ/L (98-107) Estimat Glomerular Filtration Rate 86 ML/MIN (>89) Hemoglobin 15.4 GM/DL (11.6-15.3) PE at Discharge GENERAL: Patient is a well-nourished, well-developed elderly female lying in bed watching TV. SKIN: Warm and dry. No obvious rashes or ecchymoses. HEAD: Atraumatic. Normocephalic. EYES: Pupils equal and round. No scleral icterus. No injection or drainage. ENT: No nasal bleeding or discharge. Mucous membranes pink and moist. NECK: Trachea midline. No JVD. CARDIOVASCULAR: Regular rate and rhythm. There are no obvious murmurs on exam. There is no irregularity noted. RESPIRATORY: No accessory muscle use. Clear to auscultation without wheezes or rhonchi. Breath sounds equal bilaterally. GASTROINTESTINAL: Abdomen soft, non-tender, nondistended. Hepatic and splenic margins not palpable. MUSCULOSKELETAL: Extremities without clubbing, cyanosis, or edema. No obvious deformities. NEUROLOGICAL: Awake and alert. She is oriented to person, place, time, and contacts. Cranial nerves II through XII intact aside from improving left homologous hemianopsia. Sensory examination is normal. She has grossly normal strength. Cerebellar exam unremarkable. Speech is normal. PSYCHIATRIC: Appropriate mood and affect; insight and judgment normal. Hospital Course Patient presented on 02/25 after a acute vision changes and confusion. CT exam showed subacute cortical infarct involving the occipital cortex on the right. MRI brain showed no mass, subacute cortical infarct involving the occipital cortex in the right with some hemorrhage within, punctate area of acute/ subacute infarct involving the basal ganglia on the right, old area of infarct involving the occipital cortex and left. Neck MRA showed minimal left common carotid stenosis at 10%. Per neurology Plavix was substituted for Aggrenox. On an echocardiogram was performed showing left atrial enlargement. Cardiology recommended no acute intervention, however should consider outpatient extended monitoring. On 02/28, day of discharge, patient had no new symptoms. Continue to endorse left-sided vision field deficit. Noted this had happened before with a past stroke and she had fully regained vision previously. Pt Condition on Discharge: Stable Discharge Instructions Follow up Referrals: Cardiology - 1 Week Neurology - 1 Week PCP Follow-up - 1 Week Physical Medicine & Rehab - 2 Months with Mena Epps MD New Medications: Dipyridamole-Aspirin (Aggrenox) 200-25 Mg Cap 1 CAP PO Q12HR for 30 Days, #60 CAP Continued Medications: Alprazolam (Xanax) 0.5 Mg Tab 0.5 MG PO TID PRN for ANXIETY, TAB 0 Refills Amlodipine (Amlodipine) 10 Mg Tab 10 MG PO DAILY for Blood Pressure Management, #30 TAB 0 Refills Ezetimibe (Zetia) 10 Mg Tab 10 MG PO DAILY, #30 TAB 0 Refills Hydrochlorothiazide (Hydrochlorothiazide) 25 Mg Tab 25 MG PO DAILY, #30 TAB 0 Refills Isosorbide Mononitrate (Isosorbide Mononitrate) 20 Mg Tab 30 MG PO BID for Prevent Chest Pain, #60 TAB 0 Refills Take 2 doses 7 hours apart. Levothyroxine (Levothyroxine) 88 Mcg Tab 88 MCG PO DAILY for Thyroid, #30 TAB 0 Refills Metoprolol Tartrate (Metoprolol Tartrate) 50 Mg Tab 50 MG PO DAILY, #30 TAB 0 Refills Nitroglycerin SL (Nitroglycerin SL) Unknown Strength Subl Unknown Dose SL DIRECTED PRN for CHEST PAIN, #100 TAB.SL 0 Refills ONE TABLET UNDER THE TONGUE NEEDED FOR CHEST PAIN, MAY REPEAT EVERY FIVE MINUTES FOR A TOTAL OF 3 DOSES OR CALL 911 IF NO RELIEF Paroxetine (Paroxetine) 20 Mg Tab 20 MG PO DAILY, #30 TAB 0 Refills Potassium Chloride ER (Potassium Chloride ER) 10 Meq Cap 10 MEQ PO BID for Electrolyte Replacement, #60 CAP 0 Refills Terbinafine (Lamisil) 250 Mg Tab 250 MG PO DAILY for Manage Fungal Infection, TAB 0 Refills Topiramate (Topiramate) 200 Mg Tab 100 MG PO BID for Control Seizures, #60 TAB 0 Refills Discontinued Medications: Clopidogrel (Clopidogrel) 75 Mg Tab 75 MG PO DAILY for Blood Clot Prevention, #30 TAB 0 Refills Lonnie Strauss MD R1 Feb 28, 2017 10:58
--- NOTE | 2017-02-28 10:58 | HHI.DCPOC ---
Discharge Care Plan Diagnosis: (1) Stroke Goals to Promote Your Health * To prevent worsening of your condition and complications * To maintain your health at the optimal level Directions to Meet Your Goals Take your medications as prescribed Follow your dietary instruction Follow activity as directed Keep your appointments as scheduled Take your immunizations and boosters as scheduled If your symptoms worsen call your PCP, if no PCP go to Urgent Care Center or Emergency Room Smoking is Dangerous to Your Health. Avoid second hand smoke Call the 24-hour hour crisis hotline for domestic abuse at Lonnie Strauss MD R1 Feb 28, 2017 10:58 Avelina Cash MD Feb 28, 2017 14:16
[2017-02-28 10:59] VITALS: PULSE 59
--- NOTE | 2017-02-28 11:00 | HHI.FPPN ---
Subjective Remarks Patient seen and examined this morning. States she is feeling well and is ready to go home. Reports improved vision, and is hopeful it will can continue to improve as it had the last time she had a stroke. Notes her baseline chronic headache present, no increase in intensity or change in position. No nausea, vomiting, fever, chills, lightheadedness, dizziness, chest pain, palpitations, shortness of breath, abdominal pain, change in bowel or bladder habits. (Lonnie Strauss MD R1) Objective Vitals Vital Signs Date Time Temp Pulse Resp B/P (MAP) Pulse Ox O2 Delivery O2 Flow Rate FiO2 02/28/17 08:00 97.6 67 18 136/63 (87) 97 02/28/17 04:00 98.1 62 18 110/55 (73) 93 02/28/17 00:00 97.2 91 18 110/67 (81) 94 02/27/17 20:00 98.1 75 18 114/57 (76) 96 02/27/17 16:00 98.1 51 18 107/60 (76) 97 02/27/17 12:41 98.0 54 18 119/60 (79) 97 I/O 02/27/17 02/27/17 02/27/17 02/28/17 02/28/17 02/28/17 06:59 14:59 22:59 06:59 14:59 22:59 Intake Total 480 ml Balance 480 ml Intake Oral 480 ml # Voids 4 3 3 4 # Bowel Movements 1 1 (Lonnie Strauss MD R1) Result Diagram: 02/28/17 0645 02/28/17 0645 Objective Remarks GENERAL: Patient is a well-nourished, well-developed elderly female lying in bed. SKIN: Warm and dry. No obvious rashes or ecchymoses. HEAD: Atraumatic. Normocephalic. EYES: Pupils equal and round. No scleral icterus. No injection or drainage. ENT: No nasal bleeding or discharge. Mucous membranes pink and moist. NECK: Trachea midline. No JVD. CARDIOVASCULAR: Regular rate and rhythm. There are no obvious murmurs on exam. There is no irregularity noted. RESPIRATORY: No accessory muscle use. Clear to auscultation without wheezes or rhonchi. Breath sounds equal bilaterally. GASTROINTESTINAL: Abdomen soft, non-tender, nondistended. Hepatic and splenic margins not palpable. MUSCULOSKELETAL: Extremities without clubbing, cyanosis, or edema. No obvious deformities. NEUROLOGICAL: Awake and alert. She is oriented to person, place, time, and contacts. Cranial nerves II through XII intact aside from improving left homologous hemianopsia. Sensory examination is normal. She has grossly normal strength. Cerebellar exam unremarkable. Speech is normal. PSYCHIATRIC: Appropriate mood and affect; insight and judgment normal. (Lonnie Strauss MD R1) A/P Assessment and Plan 71-year-old female with significant coronary artery history and CVA history who presents with confusion, headache, vision changes concerning for new stroke. CT performed in ED did not show evidence of acute bleed but MRI performed showed subacute infarct of the right apical cortex with some associated hemorrhage. She was admitted for further workup and close monitoring. Echo report today showing mild left atrial enlargement, concerning for possible undiagnosed atrial fibrillation. Cardiology consulted. Discharge Planning Likely today (Lonnie Strauss MD R1) Attending Attestation Patient seen and examined with Dr. Strauss. Case reviewed and discussed Agree with plan of care as discussed with me and documented in the resident note. 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 tach early yesterday morning, patient was asymptomatic * 2-D echo showing mild left atrial enlargement * Continue medical management with Aggrenox per neurology * Vision changes or improvement, need to monitor Hospital course: * Patient presented with confusion, headache, and acute visual changes. Symptoms first began at 10 PM on 02/25 with imaging findings suggestive of subacute infarct. She has significant vascular risk factors which make her high- risk for repeat stroke. * Patient has a history of CVA and was on Plavix at home without any missed doses * Pertinent exam findings include left homonymous hemianopsia which patient states is new. * Neck MRA showing bilateral patency of her carotid arteries * CT showing evidence of old infarcts * MRI showing subacute right occipital infarct with hemorrhagic transformation. * Stroke protocol was initiated * Patient is on Zetia 10 mg daily at home, will continue * Continue Neuro checks q4 hrs. * Cardiac telemetry. * Consult neurology, rehab medicine, PT/OT/ST and case management. * Cardiology consult 02/27 to evaluate for possible A. fib workup DISPO: -Meets inpatient criteria for stroke workup, likely will have a 2-4 day hospital stay, likely to be discharged home -Discussed with pt. the importance of controlling modifiable risk factors for stroke such as BP ctrl, diet, exercise, and not smoking. (2) Hypertension ICD Codes: I10 - Essential (primary) hypertension Status: Chronic Plan: Patient presents with chronic hypertension, will continue home medications: Metoprolol 50 mg daily, HCTZ 25 mg daily. We'll hold for hypotension, goal BP around 140/90 (3) Hx of CABG ICD Codes: Z95.1 - Presence of aortocoronary bypass graft Status: Chronic Plan: She does have a history of CABG, was on Plavix at home.. She will need to continue on Aggrenox and follow up closely with cardiology. 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 (4) Hyperlipidemia ICD Codes: E78.5 - Hyperlipidemia, unspecified Status: Chronic Plan: Patient is admitted with stroke, on Zetia at home Lipid profile is normal, continue Zetia (5) Hypothyroidism ICD Codes: E03.9 - Hypothyroidism, unspecified Status: Chronic Plan: Chronic. Patient is on low-dose levothyroxine 88 mg daily, will check TSH and continue home dose levothyroxine. (6) Anxiety with depression ICD Codes: F41.8 - Other specified anxiety disorders Status: Chronic Plan: Mood is stable at this time Patient chronically on Xanax 0.5mg TID, will continue She is also on proxy and 20 mg daily, will continue (7) Fluids/Electrolytes/Nutrition/Prophylaxis Plan: Fluids: tolerating PO, DC IV fluids today Electrolytes: monitor and replete as needed Nutrition: Heart healthy diet DVT Prophylaxis: Early ambulation. Aggrenox. She does have a small intracranial bleed at this time GI Prophylaxis: None indicated DW Dr. Cash (Lonnie Strauss MD R1) Lonnie Strauss MD R1 Feb 28, 2017 11:00 Avelina Cash MD Feb 28, 2017 14:16
== END 2017-02-28 12:50 | disposition home or self-care (01) | DRG 65 ==
LOC: NEPC 11:01 → NEDA 17:17 → N05A 20:40
PROVIDERS: ADMIT Family Medicine; ATTEND Family Medicine
DX: I61.1 Nontraumatic intracerebral hemorrhage in hemisphere, cortical (principal); I69.351 Hemiplegia and hemiparesis following cerebral infarction affecting right dominant side; I34.0 Nonrheumatic mitral (valve) insufficiency; I10 Essential (primary) hypertension; F17.210 Nicotine dependence, cigarettes, uncomplicated; J45.909 Unspecified asthma, uncomplicated; I25.10 Atherosclerotic heart disease of native coronary artery without angina pectoris; E78.5 Hyperlipidemia, unspecified; F32.9 Major depressive disorder, single episode, unspecified; E03.9 Hypothyroidism, unspecified; F41.9 Anxiety disorder, unspecified; E87.6 Hypokalemia; H53.462 Homonymous bilateral field defects, left side; R13.10 Dysphagia, unspecified; I25.2 Old myocardial infarction; Z95.5 Presence of coronary angioplasty implant and graft; Z95.1 Presence of aortocoronary bypass graft; Z79.02 Long term (current) use of antithrombotics/antiplatelets
CPT/HCPCS: 70450; 70544; 70548; 70553; 71010; 80048; 80053; 80061; 80307; 81001; 82140; 82550; 82552; 84443; 84484; 84702; 85025; 85027; 85384; 85610; 85730; 86850; 86900; 86901; 93005; 93306; A9579; J7030